=== PATIENT | male | born 1940 | race Caucasian/White ===

== ENCOUNTER 2019-05-30 12:46 | Inpatient (IN) ==
[2019-05-30] MEDS ORDERED: *HR* OxyCODONE Immed Rel 5 MG TABLET PO ONE (13:16)
--- NOTE | 2019-05-30 13:21 | Emergency Department Note ---
Disposition Clinical Impression: Closed right femoral fracture Qualifiers: Encounter type: initial encounter Femur location: unspecified portion of femur Fracture morphology: unspecified fracture morphology Qualified Code(s): S72.91XA - Unspecified fracture of right femur, initial encounter for closed fracture Disposition: Admitted As Inpatient Condition: Good Referrals: Geneva Hua CNP [Primary Care Provider] - Forms: ED Satisfaction Letter Time of Disposition: 14:59 Extremity Problem HPI - General Chief complaint: ED Extremity Problem,Nontraumatic Stated complaint: R hip pain Time Seen by Provider: 05/30/19 12:52 Source: patient, family (), EMS Mode of arrival: EMS Limitations: no limitations Nursing Notes Reviewed: Yes Vital Signs Reviewed: Yes - History of Present Illness HPI Narrative: 79-year-old male presents emergency department via EMS for right hip pain. Patient is status post ORIF 10/17/2018. Reports approximately 4 days of worsening pain in the right hip. He has been doing therapy twice a day most recent . They had to take it easy as he has some soreness in the right leg and Thursday he had difficulty with ambulation. Reportedly he has been laying in bed since then due to the pain. No recent fall or injury. He has been taken acetaminophen with minimal relief for pain. His surgery was back in October approximately [address] Whitney. Denies any numbness or tingling. De nies any other complaints. Denies any fevers nausea or vomiting. Pain Scale: 10 - Related Data Home Medications Medication Instructions Recorded Confirmed Glimepiride [Amaryl] 4 mg PO DAILY 10/17/18 05/30/19 Loratadine [Claritin] 10 mg PO DAILY 10/17/18 05/30/19 Potassium Chloride [Klor-Con 10] 10 meq PO DAILY 10/17/18 05/30/19 metFORMIN [Glucophage] 1,000 mg PO BIDWM 10/17/18 05/30/19 Aspirin [Lo-Dose Aspirin EC] 81 mg PO DAILY 10/18/18 05/30/19 Atorvastatin [Lipitor] 40 mg PO QMWF 10/18/18 05/30/19 Nitroglycerin [Nitrostat] 0.4 mg SL Q5M PRN MDD [id number] CALL 10/18/18 05/30/19 911 Vit A/Vit C/Vit E/Zinc/Copper 1 cap PO DAILY 10/18/18 05/30/19 [Icaps Areds Softgel] Lisinopril/Hydrochlorothiazide 20 mg OP DAILY 05/30/19 05/30/19 [Lisinopril-Hctz 20-25 mg Tab] Allergies Allergy/AdvReac Type Severity Reaction Status Date / Time Penicillins AdvReac passed out Verified 10/18/18 11:54 All systems ED: reviewed and negative except as stated. Review of Systems: As Per HPI Past Medical History - Past Medical History Attestation: Yes The following information was validated with the patient. Source: patient Medical history: Reports: diabetes, hyperlipidemia, hypertension Psychiatric history: Reports: no psych history - Social History Smoking Status: Former smoker Smokeless Tobacco Status: No Alcohol use: Reports: none Drug use: Reports: none Physical Exam - General Limitations: no limitations General appearance: alert, in no apparent distress - Chest Chest inspection: Present: normal inspection, symmetric chest wall rise - Respiratory Respiratory exam: Present: normal lung sounds bilaterally. Absent: respiratory distress, wheezes - Cardiovascular Cardiovascular exam: Present: regular rate, normal rhythm, normal heart sounds - Expanded Cardiovascular Exam Peripheral pulses: 2+: dorsalis pedis (R), dorsalis pedis (L) - Abdominal Exam Abdominal exam: Present: soft, Non-Tender, normal bowel sounds. Absent: tenderness, distention, guarding, rebound, rigidity - Expanded Lower Extremity Exam Hip/Pelvis exam: Present: normal inspection, tenderness, pelvis stable. Absent: internal rotation, shortening Upper leg exam: Present: normal inspection, tenderness (Mid right thigh), other (Surgical scar appears well-heeled, no fluctuance or surrounding erythema). Absent: deformity Knee exam: Present: normal inspection, full ROM. Absent: tenderness Lower leg exam: Present: normal inspection, full ROM. Absent: tenderness Ankle exam: Present: normal inspection, full ROM. Absent: tenderness Foot/toe exam: Present: normal inspection, full ROM. Absent: tenderness Neurovascular/Tendon exam: Present: normal capillary refill. Absent: pulse deficit, motor deficit, sensory deficit, tendon deficit - Neurological Exam Neurological exam: Present: alert, oriented X3 - Psychiatric Psychiatric exam: Present: normal affect, normal mood - Skin Skin exam: Present: warm, dry, intact, normal color. Absent: rash, cyanosis, diaphoresis Course Course Narrative: Patient presents for atraumatic right hip pain. He is status post surgical fixation from earlier this year. Neurovascular intact. Concern for post hardware fracture. - Reevaluation(s) Reevaluation #1: X-ray reveals acute fracture. Will obtain pre-op labs in EKG. Patient will be likely admitted to medicine service with orthopedic consultation. Time: 14:58 - Consultations Consultation #1: Spoke to the orthopedic surgeon immigration lawyer Dr. HAYNES, agrees with plan and management. Will [facility] medicine service. Dr. HAYNES will contact his orthopedic surgeon Dr. Whitney. Preop labs performed in pending. EKG shows bundle branch block. Time: 15:11 Consultation #2: Spoke with on-call hospitalist Dr. Treviño, ok to admit for femoral fracture. No further orders at this time Vital Signs Temperature 98.2 F 05/30/19 12:51 Pulse Rate 98 05/30/19 12:51 Respiratory Rate 18 05/30/19 12:51 Blood Pressure 158/98 05/30/19 12:51 O2 Sat by Pulse Oximetry 99 05/30/19 12:51 Temperature 98.2 F 05/30/19 12:51 Pulse Rate 80 05/30/19 15:56 Respiratory Rate 18 05/30/19 15:56 Blood Pressure 174/88 05/30/19 15:56 O2 Sat by Pulse Oximetry 98 05/30/19 15:56 Oxygen Delivery Oxygen Delivery Room Air Extremity Problem, Nontraumati - MDM Narrative Medical decision making narrative: Patient was discussed with my attending physician who agrees with ED management and final disposition. They independently evaluated the patient. Please refer to their attestation to this encounter for additional information. This note was generated by [employer] voice recognition software and as a result grammatical or spelling errors may occur using this program. - Medical Records Medical records reviewed: Yes I reviewed the patient's medical records. - Lab Data Lab results reviewed: Yes I reviewed the patient's lab results. Result diagrams: 05/30/19 14:24 05/30/19 14:24 Lab Results 05/30/19 05/30/19 05/30/19 Range/Units 14:24 14:24 15:23 WBC 11.0 (4.3-11.1) K/mcL RBC 4.26 (4.19-5.50) M/mcL Hgb 13.0 (12.9-16.9) g/dL Hct 39.4 (37.5-50.1) % MCV 92.5 (83.0-100.0) fL MCH 30.5 (28.0-33.3) pg MCHC 33.0 (31.6-35.5) g/dL RDW 13.7 (11.5-14.5) % Plt Count 347 (140-400) K/mcL MPV 11.3 (9.4-12.4) fL Immature Gran % 0.2 (0-4) % Seg Neutrophils % 57.8 % Lymphocytes % 33.7 % Monocytes % 6.9 % Eosinophils % 1.0 % Basophils % 0.4 % Neutrophils # 6.3 (1.6-8.9) K/mcL Lymphocytes # 3.7 (0.6-4.6) K/mcL Monocytes # 0.8 (0.0-1.3) K/mcL Eosinophils # 0.1 (0.0-0.6) K/mcL Basophils # 0.0 (0.0-0.2) K/mcL Sodium 139 (136-145) mEq/L Potassium 3.7 (3.5-5.1) mEq/L Chloride 100 (98-107) mEq/L Carbon Dioxide 30 H (23-29) mEq/L BUN 31 H (8-23) mg/dL Creatinine 1.57 H (0.70-1.30) mg/dL Est GFR ( Amer) 52 L (> 60) Est GFR (Non-Af Amer) 43 L (> 60) BUN/Creatinine Ratio 20 (6-26) Glucose 335 H (70-105) mg/dL Calculated Osmolality 308 H (280-300) Calcium 9.4 (8.6-10.3) mg/dL Troponin I < 0.03 (< 0.04) ng/mL - Radiology Data Radiology results reviewed: Yes I reviewed the patient's radiology results. Femur X-Ray 05/30/19 13:41 IMPRESSION: 1. Acute traumatic fracture of the proximal femoral intramedullary amarilys at the level of the screw within adjacent oblique fracture of the proximal femur. D/ / Tex Calderón MD / Tex Calderón MD Interpreting Provider: Tex Calderón MD Pelvis X-Ray 05/30/19 13:42 IMPRESSION: Fracture of the intramedullary amarilys extending through the femur at the level of the cortical screw with oblique comminuted fracture through the proximal diaphysis of the femur. D/ / 05/30/2019 13:46:05 Alex Morillo MD / Amelia Jorgensen Interpreting Provider: Aelx Morillo MD - EKG Data EKG attestation: Yes I reviewed and interpreted this EKG. EKG results narrative: EKG performed 1452 reveals a sinus rhythm with right bundle branch block URS is wide at [address] elevation or Sgarbossa criteria Attestation Statement - Attestation Attestation: I, Michael Angulo DO, examined this patient [id number] and my medical decision-making was reviewed with Mario Alberto Hutson DO , Resident Physician. I agree with the documented findings, disposition and treatment plan as described except to the extent set forth below. I personally supervised and was present for the rodriguez/critical portions of the procedures completed by the resident documented below. Please see my progress notes for details.
--- NOTE | 2019-05-30 14:16 | Emergency Department Note ---
Disposition Clinical Impression: Closed right femoral fracture Disposition: Admitted As Inpatient Condition: Good Referrals: Geneva Hua, LABORER [employer]OLITION [Advanced Practice Nurse] - Forms: ED Satisfaction Letter Time of Disposition: 15:50 General Adult HPI - General Chief complaint: ED Extremity Problem,Nontraumatic Stated complaint: R hip pain Time Seen by Provider: 05/30/19 12:52 Source: patient, family (), EMS Mode of arrival: EMS Limitations: no limitations - History of Present Illness Pain Scale: 10 - Related Data Home Medications Medication Instructions Recorded Confirmed Glimepiride [Amaryl] 4 mg PO DAILY 10/17/18 10/18/18 Loratadine [Claritin] 10 mg PO DAILY 10/17/18 10/18/18 Pioglitazone HCl [Actos] 15 mg PO DAILY 10/17/18 10/18/18 Potassium Chloride [Klor-Con 10] 10 meq PO DAILY 10/17/18 10/18/18 metFORMIN [Glucophage] 1,000 mg PO BIDWM 10/17/18 10/18/18 Aspirin [Lo-Dose Aspirin EC] 81 mg PO DAILY 10/18/18 10/18/18 Atorvastatin [Lipitor] 40 mg PO QMWF 10/18/18 10/18/18 Finasteride [Proscar] 5 mg PO DAILY 10/18/18 10/18/18 Nitroglycerin [Nitrostat] 0.4 mg SL Q5M PRN MDD [id number] CALL 10/18/18 10/18/18 911 Vit A/Vit C/Vit E/Zinc/Copper 1 cap PO DAILY 10/18/18 10/18/18 [Icaps Areds Softgel] Previous Rx's Medication Instructions Recorded Carvedilol [Coreg] 6.25 mg PO BIDWM #60 tablet 10/23/18 Ferrous Sulfate 325 mg PO BIDWM #60 tablet 10/23/18 Allergies Allergy/AdvReac Type Severity Reaction Status Date / Time Penicillins AdvReac passed out Verified 10/18/18 11:54 Past Medical History - Past Medical History Medical history: Reports: diabetes, hyperlipidemia, hypertension Psychiatric history: Reports: no psych history - Social History Smoking Status: Former smoker Smokeless Tobacco Status: No Alcohol use: Reports: none Drug use: Reports: none Physical Exam - General Limitations: no limitations General appearance: alert, in no apparent distress Course Vital Signs Temperature 98.2 F 09/23/19 12:51 Pulse Rate 98 05/30/19 12:51 Respiratory Rate 18 05/30/19 12:51 Blood Pressure 158/98 05/30/19 12:51 O2 Sat by Pulse Oximetry 99 05/30/19 12:51 Temperature 98.2 F 05/30/19 12:51 Pulse Rate 98 05/30/19 12:51 Respiratory Rate 18 05/30/19 12:51 Blood Pressure 158/98 05/30/19 12:51 O2 Sat by Pulse Oximetry 99 05/30/19 12:51 Oxygen Delivery Oxygen Delivery Room Air Medical Decision Making - Lab Data Result diagrams: 05/30/19 14:24 05/30/19 14:24 Lab Results 05/30/19 05/30/19 Range/Units 14:24 14:24 WBC 11.0 (4.3-11.1) K/mcL RBC 4.26 (4.19-5.50) M/mcL Hgb 13.0 (12.9-16.9) g/dL Hct 39.4 (37.5-50.1) % MCV 92.5 (83.0-100.0) fL MCH 30.5 (28.0-33.3) pg MCHC 33.0 (31.6-35.5) g/dL RDW 13.7 (11.5-14.5) % Plt Count 347 (140-400) K/mcL MPV 11.3 (9.4-12.4) fL Immature Gran % 0.2 (0-4) % Seg Neutrophils % 57.8 % Lymphocytes % 33.7 % Monocytes % 6.9 % Eosinophils % 1.0 % Basophils % 0.4 % Neutrophils # 6.3 (1.6-8.9) K/mcL Lymphocytes # 3.7 (0.6-4.6) K/mcL Monocytes # 0.8 (0.0-1.3) K/mcL Eosinophils # 0.1 (0.0-0.6) K/mcL Basophils # 0.0 (0.0-0.2) K/mcL Sodium 139 (136-145) mEq/L Potassium 3.7 (3.5-5.1) mEq/L Chloride 100 (98-107) mEq/L Carbon Dioxide 30 H (23-29) mEq/L BUN 31 H (8-23) mg/dL Creatinine 1.57 H (0.70-1.30) mg/dL Est GFR ( Amer) 52 L (> 60) Est GFR (Non-Af Amer) 43 L (> 60) BUN/Creatinine Ratio 20 (6-26) Glucose 335 H (70-105) mg/dL Calculated Osmolality 308 H (280-300) Calcium 9.4 (8.6-10.3) mg/dL Attestation Statement - Attestation Attestation: I, Michael Angulo DO, examined this patient [id number] and my medical decision-making was reviewed with Mario Alberto Hutson DO , Resident Physician. I agree with the documented findings, disposition and treatment plan as described except to the extent set forth below. I personally supervised and was present for the rodriguez/critical portions of the procedures completed by the resident documented below. Please see my progress notes for details. 79-year-old male presents emergency room with a traumatic right thigh pain. Patient had a an intramedullary nail placed after hip fracture or thigh fracture several months ago in October. Patient been doing well at home after going to rehabilitation. He currently denies any chest pain shortness breath fevers ch ills nausea vomiting or diarrhea. Denies any headache or vision change. He has not fallen or injured himself. Denies any travel outside the country or traumatic injuries to the thigh. Vital signs reviewed and are stable. Patient is resting comfortably in the bed. Head is atraumatic. Pupils are equal and reactive. Extracted muscles are intact. Lungs are clear heart is regular abdomen is soft. Pelvis appears to be stable. No pain noted in the inguinal canals bilaterally and femoral pulses are intact. Mild tenderness presentation of the skin is noted over the surgical incision site with no redness warmth or abnormality to the right thigh. Patient has no specific numbness tingling or paresthesias distally to this. Patient is unable to lift the leg up or bear weight this time secondary to pain. When I straight leg raise the patient's lower extremity does have discomfort in the mid shaft of the thigh. Imaging of the pelvis and thigh were ordered at this time. Patient has no other acute issues that justify other further workup and imaging at this time. Disposition to be determined once full workup and evaluation have been established. See detailed documentation the physical exam, medical intervention, medical decision-making and disposition in the resident physician's note. No critical care provider the patient's treatment course at this time. 1400 Patient is found to have a midshaft fracture through the intramedullary nail with discontinuity of the nail at this time. Patient will be discussed with the on-call orthopedic physician for admission and surgical intervention. Patient family are informed. Screening labs were ordered for preoperative evaluation. Patient is otherwise stable. 4844 Patient was discussed with the hospitalist Dr. Treviño. No other recommendations or concerns are noted this time. Patient will be admitted for symptomatically control pain and surgical consultation with orthopedics. Patient will be monitored here in emergency department until admission processes established.
[2019-05-30 14:41] LABS: Basophils % 0.4 %; Eosinophils # 0.1 K/mcL (0.0-0.6); Hematocrit 39.4 % (37.5-50.1); Immature Granulocytes % 0.2 % (0-4); Lymphocytes # 3.7 K/mcL (0.6-4.6); Lymphocytes % 33.7 %; Mean Corpuscular Hemoglobin 30.5 pg (28.0-33.3); Mean Corpuscular Volume 92.5 fL (83.0-100.0); Mean Platelet Volume 11.3 fL (9.4-12.4); Monocytes # 0.8 K/mcL (0.0-1.3); Monocytes % 6.9 %; Neutrophils # 6.3 K/mcL (1.6-8.9); Platelet Count 347 K/mcL (140-400); Red Blood Count 4.26 M/mcL (4.19-5.50); Red Cell Distribution Width 13.7 % (11.5-14.5); Segmented Neutrophils % 57.8 %
[2019-05-30 14:58] LABS: Calcium 9.4 mg/dL (8.6-10.3); Potassium 3.7 mEq/L (3.5-5.1)
[2019-05-30] MEDS ORDERED: Morphine Sulfate 2 MG/ML SYRINGE IVP ONE (15:31)
--- NOTE | 2019-05-30 16:21 | Orthopedic Consult Note ---
Date of Encounter: 05/30/19 Time of Encounter: 16:30 Assessment and Plan (1) Hardware failure Current Visit: Yes Status: Acute (2) Closed right femoral fracture Current Visit: Yes Status: Acute Qualifiers: Encounter type: initial encounter Femur location: unspecified portion of femur Fracture morphology: unspecified fracture morphology Qualified Code(s): S72.91XA - Unspecified fracture of right femur, initial encounter for closed fracture History of Present Illness Chief complaint: right hip fracture HPI: Mr. Wilkerson is a 79 year old male presenting to [facility] for difficulty ambulating and right hip pain. Ongoing and worsening over the past 5 days per report. Attempted to locate patient who per ED staff is en route through hospital to room. Unable to locate while in transit. XRays reviewed with Dr. Whitney. RIGHT HIP "Acute traumatic fracture of the proximal femoral intramedullary amarilys at the level of the screw within adjacent oblique fracture of the proximal femur." Patient will require surgical intervention in form of revision to long IM nail. This requires special equipment. Patient will need medical clearance prior to surgery, which will be planned for Thursday, 06/01. Pain control per primary team Nonweightbearing to RLE No hip motion Patient to be NPO midnight 06/01 Avoid heavy anticoagulation while inpatient secondary to large fracture. Monitor h/h closely. Will see patient at bedside in the morning once reaches room. Thank you for this consultation. Past Med Surg Social Fam HX - Past Medical History Medical history: diabetes, hyperlipidemia, hypertension Additional medical history: history of rib fx,overactive bladder Psychiatric history: no psych history - Social History Smoking Status: Former smoker Smokeless Tobacco Status: No Alcohol use: none Drug use: none - Family History Father History Unknown: Yes Mother History Unknown: Yes Medications and Allergies Glimepiride [Amaryl] 4 mg PO DAILY 10/17/18 [History] Loratadine [Claritin] 10 mg PO DAILY 10/17/18 [History] Potassium Chloride [Klor-Con 10] 10 meq PO DAILY 10/17/18 [History] metFORMIN [Glucophage] 1,000 mg PO BIDWM 10/17/18 [History] Aspirin [Lo-Dose Aspirin EC] 81 mg PO DAILY 10/18/18 [History] Atorvastatin [Lipitor] 40 mg PO MOWEFR 10/18/18 [History] Nitroglycerin [Nitrostat] 0.4 mg SL Q5MIN PRN MDD [id number] CALL 911 10/18/18 [History] Vit A/Vit C/Vit E/Zinc/Copper [Icaps Areds Softgel] 1 cap PO DAILY 10/18/18 [History] Lisinopril/Hydrochlorothiazide [Lisinopril-Hctz 20-25 mg Tab] 20 mg PO DAILY 05/30/19 [History] Allergy/AdvReac Type Severity Reaction Status Date / Time Penicillins AdvReac passed out Verified 10/18/18 11:54 All Systems Reviewed: The remainder of the systems were reviewed and are negative Physical Exam - Constitutional Vitals: Temp Pulse Resp BP Pulse Ox 98.2 F 80 18 174/88 98 05/30/19 12:51 05/30/19 15:56 05/30/19 15:56 05/30/19 15:56 05/30/19 15:56 Results - Labs Result Diagrams: 05/30/19 14:24 05/30/19 14:24 Labs: Abnormal lab results Carbon Dioxide 30 mEq/L (23-29) H 05/30/19 14:24 BUN 31 mg/dL (8-23) H 05/30/19 14:24 Creatinine 1.57 mg/dL (0.70-1.30) H 05/30/19 14:24 Est GFR ( Amer) 52 (> 60) L 05/30/19 14:24 Est GFR (Non-Af Amer) 43 (> 60) L 05/30/19 14:24 Glucose 335 mg/dL (70-105) H 05/30/19 14:24 Calculated Osmolality 308 (280-300) H 05/30/19 14:24 H & H 05/30/19 Range/Units 14:24 Hgb 13.0 (12.9-16.9) g/dL Hct 39.4 (37.5-50.1) % All other labs normal. Consult Discharge Plan - Plan Referrals: Geneva Hua, ROD FILLER [Primary Care Provider] -
[2019-05-30] MEDS ORDERED: Naloxone 0.4 MG/ML INJ IVP PRN (16:32)
[2019-05-30] MEDS ORDERED: Nitroglycerin 0.4 MG TAB.SUBL SL PRN (16:38)
[2019-05-30] MEDS ORDERED: *HR* Dextrose 50 % in Water (Syg) 50 ML SYRINGE IVP PRN (16:40)
[2019-05-30] MEDS ORDERED: Dextrose Gel 15 GM/37.5 ML TUBE PO PRN ×2 (16:40)
[2019-05-30] MEDS ORDERED: D5% in Water 1,000 ML IVC PRN (16:40)
--- NOTE | 2019-05-30 16:58 | Internal Med History&Physical ---
Date of Encounter: 05/30/19 Time of Encounter: 16:53 Internal Medicine - H&P: HPI Chief complaint: Right hip pain. Admitted From: Home Plans for Post Hospital Care: Transfer [facility] History of present illness: Mr. Wilkerson is a 79 year old male with past medical history of HTN, HLD, BPPV and DM 2. He presented with right hip pain limiting ambulation. Patient had ORIF for right hip fracture on 10/17/2018. His postoperative period was uncomplicated and he was discharged to nursing facility for 6 weeks and has been going through physical therapy twice a day since then. Patient however started experiencing some soreness in his right hip about 5 days ago which limited his ability to participate in physical therapy and now has him bedbound. The pain is 5/10 the moment, limited to the right hip and exacerbated by movement. He denies recent fall or trauma to the hip. Past Med Surg Social Fam HX - Past Medical History Medical history: diabetes, hyperlipidemia, hypertension Additional medical history: history of rib fx,overactive bladder Psychiatric history: no psych history - Past Surgical History Surgical History: orthopedic, other (ORIF on right hip in October) - Social History Smoking Status: Former smoker Smokeless Tobacco Status: No Alcohol use: none Drug use: none - Additional Family History Additional family history: Reviewed and noncontributory Internal Medicine - H&P: Meds Glimepiride [Amaryl] 4 mg PO DAILY 10/17/18 [History] Loratadine [Claritin] 10 mg PO DAILY 10/17/18 [History] Potassium Chloride [Klor-Con 10] 10 meq PO DAILY 10/17/18 [History] metFORMIN [Glucophage] 1,000 mg PO BIDWM 10/17/18 [History] Aspirin [Lo-Dose Aspirin EC] 81 mg PO DAILY 10/18/18 [History] Atorvastatin [Lipitor] 40 mg PO MOWEFR 10/18/18 [History] Nitroglycerin [Nitrostat] 0.4 mg SL Q5MIN PRN MDD [id number] CALL 911 10/18/18 [History] Vit A/Vit C/Vit E/Zinc/Copper [Icaps Areds Softgel] 1 cap PO DAILY 10/18/18 [History] Lisinopril/Hydrochlorothiazide [Lisinopril-Hctz 20-25 mg Tab] 20 mg PO DAILY 05/30/19 [History] Allergy/AdvReac Type Severity Reaction Status Date / Time Penicillins AdvReac passed out Verified 10/18/18 11:54 All Systems PM: A 10-system review of systems was performed and is negative for pertinent findings except as documented above in the HPI. Review of systems: GENERAL: No fever and chills HEENT: No rhinorrhea, No sore throat, No ear pain or discharge, No dysphagia or odynophagia PULMONARY: No cough, No chest pain, No Sputum production, No dyspnea on exertion CARDIOVASCULAR: No chest pain, no palpitations, No shortness of breath, No PND, No orthopnea GASTROINTESTINAL: No abdominal pain, No nausea, No vomiting, No constipation, No DIARRHEA, No hematemesis, No hematochezia MUSKULOSKELETAL: As in history of present illness INTEGUMENTARY: No new skin lesions NERVOUS SYSTEM: No Dizziness, No weakness, No slurred speech, No diplopia or blurred/ loss vision, No numbness, No tinglng sensation. - Constitutional Vitals: Temp Pulse Resp BP Pulse Ox 36.8 C 80 18 174/88 98 05/30/19 12:51 05/30/19 15:56 05/30/19 15:56 05/30/19 15:56 05/30/19 15:56 Exam: GENERAL: Not in distress. Alert and Oriented HEENT: EOMI, PERRLA MOUTH: Moist oral mucosa NECK:No JVD, No lymph nodes. CHEST AND LUNGS: Normal breath sounds, no wheezes or crackles HEART: S1 and S2 normal, no murmurs ABDOMEN: Soft, nontender, no organomegaly SKIN: Normal color, no rahses, no lesions EXTREMITIES: Well-healed longitudinal surgical scar over right hip, moderate swelling and tenderness of the lateral right proximal thigh. NEUROLOGICAL: Normal cognition, normal motor and sensory exam. Internal Med - H&P Results - Labs CBC & Chem 7: 05/30/19 14:24 05/30/19 14:24 Labs: Short CBC 05/30/19 Range/Units 14:24 WBC 11.0 (4.3-11.1) K/mcL Hgb 13.0 (12.9-16.9) g/dL Hct 39.4 (37.5-50.1) % Plt Count 347 (140-400) K/mcL Neutrophils # 6.3 (1.6-8.9) K/mcL BMP 05/30/19 14:24 Sodium 139 Potassium 3.7 Chloride 100 Carbon Dioxide 30 H BUN 31 H Creatinine 1.57 H Glucose 335 H Calcium 9.4 Cardiac Enzymes 05/30/19 Range/Units 15:23 Troponin I < 0.03 (< 0.04) ng/mL - Impressions ITS Impressions Femur X-Ray 05/30/19 13:41 IMPRESSION: 1. Acute traumatic fracture of the proximal femoral intramedullary amarilys at the level of the screw within adjacent oblique fracture of the proximal femur. D/ / Tex Calderón MD / Tex Calderón MD Interpreting Provider: Txe Calderón MD Pelvis X-Ray 05/30/19 13:42 IMPRESSION: Fracture of the intramedullary amarilys extending through the femur at the level of the cortical screw with oblique comminuted fracture through the proximal diaphysis of the femur. D/ / 05/30/2019 13:46:05 Alex Morillo MD / Amelia Jorgensen Interpreting Provider: Alex Morillo MD - Assessment and Plan (1) Closed right femoral fracture Current Visit: Yes Status: Acute Assessment and plan: Patient had ORIF 10/17/2018 Has been going through physical therapy since Soreness in right hip over the last 5 days No history of fall or trauma X-ray which I reviewed shows acute fracture of the proximal femoral intram edullary extending through the femur. Orthopedic consult Nothing by mouth at midnight. Adequate analgesia Qualifiers: Encounter type: initial encounter Femur location: unspecified portion of femur Fracture morphology: unspecified fracture morphology Qualified Code(s): S72.91XA - Unspecified fracture of right femur, initial encounter for closed fracture (2) Chronic kidney disease, stage III (moderate) Current Visit: No Status: Chronic Assessment and plan: We will monitor creatinine Avoid nephrotoxins (3) Diabetes mellitus, type 2 Current Visit: No Status: Chronic Assessment and plan: Accu-Cheks Sliding scale Qualifiers: Diabetes mellitus mcfp insulin use: without mcfp use Diabetes mellitus complication status: with hyperglycemia Qualified Code(s): E11.65 - Type 2 diabetes mellitus with hyperglycemia (4) Essential hypertension Current Visit: No Status: Chronic Assessment and plan: BP not controlled. Currently 170/88 Resume home meds Hydralazine when necessary (5) Hyperlipidemia Current Visit: Yes Status: Chronic Assessment and plan: Continue statins Qualifiers: Hyperlipidemia type: mixed hyperlipidemia Qualified Code(s): E78.2 - Mixed hyperlipidemia (6) DVT prophylaxis Current Visit: Yes Status: Acute Assessment and plan: PCD's - Time Spent With Patient Total time spent is greater than 50% in coordination of care (as documented) at patient's floor/unit and/or counseling patient:
[2019-05-30] MEDS: 0.9 % Sodium Chloride 1,000 ML IVC SCH (21:19)
[2019-05-31 04:18] LABS: Basophils % 0.4 %; Eosinophils # 0.1 K/mcL (0.0-0.6); Eosinophils % 1.5 %; Hematocrit 38.3 % (37.5-50.1); Hemoglobin 12.4 g/dL (12.9-16.9); Immature Granulocytes % 0.3 % (0-4); Lymphocytes # 3.9 K/mcL (0.6-4.6); Lymphocytes % 41.3 %; Mean Corpuscular HGB Conc 32.4 g/dL (31.6-35.5); Mean Corpuscular Hemoglobin 29.9 pg (28.0-33.3); Mean Corpuscular Volume 92.3 fL (83.0-100.0); Monocytes # 0.7 K/mcL (0.0-1.3); Monocytes % 7.7 %; Neutrophils # 4.6 K/mcL (1.6-8.9); Platelet Count 313 K/mcL (140-400); Red Blood Count 4.15 M/mcL (4.19-5.50); Red Cell Distribution Width 13.5 % (11.5-14.5); Segmented Neutrophils % 48.8 %; White Blood Count 9.3 K/mcL (4.3-11.1)
[2019-05-31 04:37] LABS: BUN/Creatinine Ratio 19 (6-26); Blood Urea Nitrogen 25 mg/dL (8-23); Calcium 8.9 mg/dL (8.6-10.3); Carbon Dioxide 27 mEq/L (23-29); Chloride 105 mEq/L (98-107); Glucose 211 mg/dL (70-105); Osmolality,Calculated 301 (280-300); Potassium 3.3 mEq/L (3.5-5.1); Sodium 140 mEq/L (136-145); eGFR For African Americans > 60 (> 60); eGFR For Non-African Americans 51 (> 60)
[2019-05-31] MEDS: 0.9 % Sodium Chloride 1,000 ML IVC SCH (07:46)
[2019-05-31] MEDS: Insulin LISPRO 300 UNITS/3 ML VIAL SQ SCH ×3 (08:30→17:06)
[2019-05-31] MEDS ORDERED: Loratadine 10 MG TABLET PO SCH (09:00)
--- NOTE | 2019-05-31 09:57 | Electrocardiograph Report ---
[facility] [employer] Test Date: 2019-05-30 Pat Name: Ulysses Wilkerson Department: EXAM4 Room: 3A63 Gender: M Placement Manager: : 1940 Requested By: Mario Alberto Hutson Order Number: [id number] Reading MD: Pablo Raymundo Measurements Intervals [place] Rate: 88 P: 64 IL: 227 QRS: -74 QRSD: 149 T: 84 QT: 402 QTc: 487 Interpretive Statements Sinus rhythm Prolonged IL interval Right bundle branch block LVH with IVCD and secondary repol abnrm Inferior infarct, acute Lateral leads are also involved Electronically Signed On 05-31-2019 9:55:47 EDT by Pablo Raymundo
--- NOTE | 2019-05-31 12:14 | Internal Med Progress Note ---
Hospitalist Progress Note - Encounter Date of Encounter: 05/31/19 Time of Encounter: 12:14 - Subjective Interval History: No acute events overnight. Patient reports pain in right hip when he moves but states that it has been well controlled with medications. Denies chest pain, palpitations and SOB. - Exam Vitals: Temp Pulse Resp BP Pulse Ox 36.8 C 91 16 168/88 92 05/31/19 10:54 05/31/19 10:54 05/31/19 10:54 05/31/19 10:54 05/31/19 10:54 Exam: GENERAL: Not in distress. Alert and Oriented HEENT: EOMI, PERRLA MOUTH: Moist oral mucosa NECK:No JVD, No lymph nodes. CHEST AND LUNGS: Normal breath sounds, no wheezes or crackles HEART: S1 and S2 normal, no murmurs ABDOMEN: Soft, nontender, no organomegaly SKIN: Normal color, no rahses, no lesions EXTREMITIES: Well-healed longitudinal surgical scar over right hip, moderate swelling and tenderness of the lateral right proximal thigh. NEUROLOGICAL: Normal cognition, normal motor and sensory exam. - Assessment and Plan (1) Closed right femoral fracture Current Visit: Yes Status: Acute Assessment and Plan: Patient had ORIF 10/17/2018 Has been going through physical therapy since Soreness in right hip over the last 5 days No history of fall or trauma X-ray shows acute fracture of the proximal femoral intramedullary extending through the femur. Seen by ortho. Plan is to have surgery o 06/01/19 Will consult cardio for cadiovascular periop eval. (2) Chronic kidney disease, stage III (moderate) Current Visit: No Status: Chronic Assessment and Plan: We will monitor creatinine Avoid nephrotoxins (3) Diabetes mellitus, type 2 Current Visit: No Status: Chronic Assessment and Plan: Accu-Cheks Sliding scale Hold home metformin and Amaryl (4) Essential hypertension Current Visit: No Status: Chronic Assessment and Plan: BP not controlled. Currently 168/88 On hime meds. Hydralazine when necessary (5) Hyperlipidemia Current Visit: Yes Status: Chronic Assessment and Plan: Continue statins (6) DVT prophylaxis Current Visit: Yes Status: Acute Assessment and Plan: PCD's - Time Spent with Patient Total time spent is greater than 50% in coordination of care (as documented) at patient's floor/unit and/or counseling patient: Internal Medicine: Result - Labs CBC & Chem 7: 05/31/19 03:59 05/31/19 03:59 Labs: Short CBC 05/30/19 05/31/19 Range/Units 14:24 03:59 WBC 11.0 9.3 (4.3-11.1) K/mcL Hgb 13.0 12.4 L (12.9-16.9) g/dL Hct 39.4 38.3 (37.5-50.1) % Plt Count 347 313 (140-400) K/mcL Neutrophils # 6.3 4.6 (1.6-8.9) K/mcL BMP 05/30/19 05/31/19 14:24 03:59 Sodium 139 140 Potassium 3.7 3.3 L Chloride 100 105 Carbon Dioxide 30 H 27 BUN 31 H 25 H Creatinine 1.57 H 1.35 H Glucose 335 H 211 H Calcium 9.4 8.9 Cardiac Enzymes 05/30/19 Range/Units 15:23 Troponin I < 0.03 (< 0.04) ng/mL - Impressions Impressions Femur X-Ray 05/30/19 13:41 IMPRESSION: 1. Acute traumatic fracture of the proximal femoral intramedullary amarilys at the level of the screw within adjacent oblique fracture of the proximal femur. D/ / Tex Calderón MD / Tex Calderón MD Interpreting Provider: Tex Calderón MD Pelvis X-Ray 05/30/19 13:42 IMPRESSION: Fracture of the intramedullary amarilys extending through the femur at the level of the cortical screw with oblique comminuted fracture through the proximal diaphysis of the femur. 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
--- NOTE | 2019-05-31 13:45 | Cardiology Consult Note ---
<Lisa Muhammad - Last Filed: 05/31/19 13:42> Date of Encounter: 05/31/19 Time of Encounter: 13:43 Assessment and Plan (1) Preop cardiovascular exam Current Visit: No Status: Acute Per cardiology: -ECG with no acute ischemic changes noted. -Poor functional capacity. -Of note, had markedly abnormal stress 2016 which showed fixed defect inferior wall, basal and mid anterolateral wall ischemia with moderate reversibility, evidence of TID. Patient was seen by outpatient cardiology and recommended for [facility], however patient declined. Patient continues to decline invasive cardiology evaluation. -TTE 10/2018 with LVEF 45-50%, moderate diastolic dysfunction, The apical inferior, mid inferior, basal inferior, mid anterior lateral, basal anterior lateral, mid inferior lateral and basal inferior lateral kirby were hypokinetic. -Of note, last surgery 10/2018 under general anesthesia. -With markedly abnormal stress test 2015, poor functional capacity, and abnormal TTE 10/2018, patient would be at high risk for cardiovascular complications in the marcie-operative time frame. Risks were discussed with patient who states understanding. Discussion w patient/family: The assessment and plan as outlined above was discussed with the patient who expressed understanding and agreement. All questions were answered. Thank you for involving us in the care of your patient. Please call with any questions. Discussed and reviewed with . History of Present Illness Consult date: 05/31/19 Requesting physician: Aaliyah Ocampo Consult reason: preop Chief complaint: hip pain History of present illness: Mr. Wilkerson is a 79 year old male with a relevant past medical history of uncontrolled DM, HTN, HLD, parkinson's disease, CKD III, BPH, OA who presented to [facility] with complaints of hip/leg pain. Patient was noted to have fracture of femur amarilys. Cardiology has been consulted for preop risk stratification. Patient denies chest pain, worsening shortness of breath. Reports poor functional capacity, unable to achieve 4 METs. Past Med Surg Social Fam HX - Past Medical History Attestation: Yes The following information was validated with the patient. Source: patient, old records reviewed Medical history: diabetes, hyperlipidemia, hypertension Additional medical history: history of rib fx,overactive bladder Psychiatric history: no psych history - Past Surgical History Surgical History: orthopedic, other - Social History Smoking Status: Former smoker Smokeless Tobacco Status: No Alcohol use: none Drug use: none - Family History Father History Unknown: Yes Mother History Unknown: Yes Medications and Allergies Glimepiride [Amaryl] 4 mg PO DAILY 10/17/18 [History] Loratadine [Claritin] 10 mg PO DAILY 10/17/18 [History] Potassium Chloride [Klor-Con 10] 10 meq PO DAILY 10/17/18 [History] metFORMIN [Glucophage] 1,000 mg PO BIDWM 10/17/18 [History] Aspirin [Lo-Dose Aspirin EC] 81 mg PO DAILY 10/18/18 [History] Atorvastatin [Lipitor] 40 mg PO MOWEFR 10/18/18 [History] Nitroglycerin [Nitrostat] 0.4 mg SL Q5MIN PRN MDD [id number] CALL 911 10/18/18 [History] Vit A/Vit C/Vit E/Zinc/Copper [Icaps Areds Softgel] 1 cap PO DAILY 10/18/18 [History] Lisinopril/Hydrochlorothiazide [Lisinopril-Hctz 20-25 mg Tab] 20 mg PO DAILY 05/30/19 [History] Allergy/AdvReac Type Severity Reaction Status Date / Time Penicillins AdvReac passed out Verified 10/18/18 11:54 All Systems Review: The remainder of the systems were reviewed and are negative - Cardiovascular Cardiovascular: as per HPI Physical Examination Vital Signs, Last 4 Hours Temp Pulse Resp BP Pulse Ox 05/31/19 10:54 98.3 F 91 16 168/88 92 General: Conversant, No Apparent Distress HEENT: Atraumatic, Normocephaly, Mucus Membranes Moist Neck: No JVD, Normal carotid pulses Cardiac: Reg Rate and Rhythm, Normal S1 and S2, No Murmur Lungs: Normal Breath Sounds, No Wheeze, Rales, Rhonchi Neuro: Alert and responsive, No focal deficits noted Abdomen: Soft, Non-Tender Skin: No rashes noted on visualized skin Musculoskeletal: No Chest Wall Tenderness Extremities: No Clubbing, No Cyanosis, No Edema, Normal Pulses Results 05/31/19 03:59 05/31/19 03:59 Lab Results Impressions Femur X-Ray 05/30/19 13:41 IMPRESSION: 1. Acute traumatic fracture of the proximal femoral intramedullary amarilys at the level of the screw within adjacent oblique fracture of the proximal femur. D/ / Tex Calderón MD / Tex Calderón MD Interpreting Provider: Tex Calderón MD Pelvis X-Ray 05/30/19 13:42 IMPRESSION: Fracture of the intramedullary amarilys extending through the femur at the level of the cortical screw with oblique comminuted fracture through the proximal diaphysis of the femur. D/ / 05/30/2019 13:46:05 Alex Morillo MD / Amelia Jorgensen Interpreting Provider: Alex Morillo MD Active Medications Atorvastatin Calcium (Lipitor) 40 mg PO QMWF GEOFF Stop: 12/01/19 09:01 Dextrose/Water (Dextrose 50% (Syg)) 25 ml IVP AD PRN PRN Reason: Hypoglycemia Stop: 11/29/19 16:41 Glucagon (Glucagen) 1 mg IM ONCE PRN PRN Reason: Hypoglycemia Stop: 11/29/19 16:41 Glucose (Gluctose) 15 gm PO ONCE PRN PRN Reason: Hypoglycemia Stop: 11/29/19 16:41 Glucose (Gluctose) 30 gm PO ONCE PRN PRN Reason: Hypoglycemia Stop: 11/29/19 16:41 Hydralazine HCl (Hydralazine) 10 mg IVP Q6HR PRN PRN Reason: Hypertension Stop: 11/29/19 17:16 Last Admin: 05/31/19 11:59 Dose: 10 mg Documented by: Sodium Chloride (0.9 % Sodium Chloride) 1,000 mls @ 100 mls/hr IVC .Q10H GEOFF Stop: 11/29/19 16:16 Last Admin: 05/31/19 07:46 Dose: 100 mls/hr Documented by: Dextrose (Dextrose 5%) 1,000 mls @ 100 mls/hr IVC .Q10H PRN PRN Reason: HYPOGLYCEMIA Stop: 11/29/19 16:41 Insulin Detemir (Levemir) 5 unit SQ HS GEOFF Stop: 11/30/19 21:01 Insulin Human Lispro (Humalog) 0 units SQ TIDAC GEOFF; Protocol Stop: 11/30/19 07:31 Last Admin: 05/31/19 11:59 Dose: 6 units Documented by: Loratadine (Claritin) 10 mg PO DAILY GEOFF; Protocol Stop: 11/30/19 09:01 Last Admin: 05/31/19 08:31 Dose: 10 mg Documented by: Naloxone HCl (Narcan) 0.4 mg IVP Q2MPRN PRN PRN Reason: SEE COMMENTS Stop: 11/29/19 16:33 Nitroglycerin (Nitroglycerin) 0.4 mg SL Q5MPRN PRN PRN Reason: Chest Pain Stop: 11/29/19 16:39 Oxycodone HCl (Oxycodone Oral Conc) 5 mg SL Q6HR PRN; Protocol PRN Reason: Pain Stop: 11/30/19 01:45 Last Admin: 05/31/19 02:50 Dose: 5 mg Documented by: Potassium Chloride (Potassium Chloride) 10 meq PO DAILY GEOFF Stop: 11/30/19 09:01 Last Admin: 05/31/19 08:31 Dose: 10 meq Documented by: Laboratory Tests 05/30/19 05/31/19 05/31/19 15:23 03:59 03:59 Hgb 12.4 L Creatinine 1.35 H Troponin I < 0.03 - Imaging and Cardiology Chest Xray: report reviewed Stress Test: report reviewed Echo: report reviewed - EKG Interpretation EKG results cardiology: personally reviewed (ECG with SR, RBBB, LVH.) Consult Discharge Plan - Plan Referrals: Geneva Hua, CHEMICAL WORKER [Primary Care Provider] - <Porfirio Arechiga A - Last Filed: 05/31/19 21:45> Date of Encounter: 05/31/19 - Attending Attestation I have personally performed a face to face evaluation on this patient. I have reviewed and agree with the documented findings and care plan as documented by the CHEMICAL WORKER. History and Exam by me shows: Patient with risk factors for CAD and abnormal stress test with possible high risk findings. Repeatedly declined cardiac catheterization. He is at elevated risk for cardiovascular events perioperatively as he undergoes urgent intermediate surgery. Thanks for the consult, please call with questions. Porfirio Arechiga MD FAC Assessment and Plan Discussion w patient/family: The assessment and plan as outlined above was discussed with the patient and/or family members who expressed understanding and agreement. All questions were answered. Thank you for involving us in the care of your patient. Please call with any questions. History of Present Illness History of present illness: Mr. Wilkerson is a 79 year old male All Systems Review: The remainder of the systems were reviewed and are negative Physical Examination Vital Signs, Last 4 Hours Temp Pulse Resp BP Pulse Ox 05/31/19 19:56 98.2 F 97 15 194/96 98 Results 05/31/19 03:59 05/31/19 03:59 Lab Results 05/31/19 05/31/19 03:59 03:59 WBC 9.3 Hgb 12.4 L Hct 38.3 Plt Count 313 Sodium 140 Potassium 3.3 L Chloride 105 Carbon Dioxide 27 BUN 25 H Creatinine 1.35 H Glucose 211 H Calcium 8.9
--- NOTE | 2019-05-31 17:44 | Anesthesia Evaluation PreOp ---
Date of Encounter: 05/31/19 Time of Encounter: 17:39 - Past History Planned Operation: Right femur removal hardware Cardiac History: HTN, Hyperlipidemia, Other (Per cardiology: CAD -ECG with no acute ischemic changes noted. -Poor functional capacity. -Of note, had scottie forrest abnormal stress 2015 which showed fixed defect inferior wall, basal and mid anterolateral wall ischemia with moderate reversibility, evidence of TID. Patient was seen by outpatient cardiology and recommended for C, however patient declined. Patient continues to decline invasive cardiology evaluation. -TTE 10/2018 with LVEF 45-50%, moderate diastolic dysfunction, The apical inferior, mid inferior, basal inferior, mid anterior lateral, basal anterior lateral, mid inferior lateral and basal inferior lateral kirby were hypokinetic. -Of note, last surgery 10/2018 under general anesthesia. -With markedly abnormal stress test 2015, poor functional capacity, and abnormal TTE 10/2018, patient would be at high risk for cardiovascular complications in the marcie- operative time frame. 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: Other (Parkinson's) Other Medical History: Renal (CKD stage 3), Diabetes Type II (poorly controlled) Anesthesia History: No Prior Anesthetic Complications, Past Anesthesia (R hip TFN 10/2018, GETA with Twining without complications) Alcohol Use: none Drug use: none Medications and Allergies Glimepiride [Amaryl] 4 mg PO DAILY 10/17/18 [History] Loratadine [Claritin] 10 mg PO DAILY 10/17/18 [History] Potassium Chloride [Klor-Con 10] 10 meq PO DAILY 10/17/18 [History] metFORMIN [Glucophage] 1,000 mg PO BIDWM 10/17/18 [History] Aspirin [Lo-Dose Aspirin EC] 81 mg PO DAILY 10/18/18 [History] Atorvastatin [Lipitor] 40 mg PO MOWEFR 10/18/18 [History] Nitroglycerin [Nitrostat] 0.4 mg SL Q5MIN PRN MDD [id number] CALL 911 10/18/18 [History] Vit A/Vit C/Vit E/Zinc/Copper [Icaps Areds Softgel] 1 cap PO DAILY 10/18/18 [Hi story] Lisinopril/Hydrochlorothiazide [Lisinopril-Hctz 20-25 mg Tab] 20 mg PO DAILY 05/30/19 [History] Allergy/AdvReac Type Severity Reaction Status Date / Time Penicillins AdvReac passed out Verified 10/18/18 11:54 - Meds/Allergy Pre-op Review Medications Reviewed: Yes Allergies Reviewed: Yes Beta Blockers on Current Med List: No Anesthesia Results - Labs 05/31/19 03:59 05/31/19 03:59 - Imaging EKG: report reviewed ( Interpretive Statements Sinus rhythm Prolonged [place] interv al Right bundle branch block LVH with IVCD and secondary repol abnrm Inferior infarct, acute Lateral leads are also involved Electronically Signed On 05-31-2019 9:55:47 EDT by Pablo Raymundo) Additional studies: ECHO 10/2018 EV/EV limited echo w enhance Impressions: Limited Echo with LV contrast. LVEF 45-50%. Mild segmental left ventricular systolic dysfunction. Ordering physician notified via Snip2Code. Left Ventricular Wall Motion: Rest Echo Findings The apical inferior, mid inferior, basal inferior, mid anterior lateral, basal anterior lateral, mid inferior lateral and basal inferior lateral kirby were hypokinetic. All other wall segments showed normal motion. stress 09/2015 Impression: Perfusion imaging demonstrates a fixed defect involving the inferior wall in which a prior infarct cannot be ruled out. There is associated ischemia involving the basal and mid anterolateral and inferolateral kirby with moderate reversibility, SDS 7. Pharmacologic ECG was negative for ischemia at the level of heart rate achieved. Patient had no chest pain with stress. Normal hemodynamic response. Gated EF = 59%. The LV is not dilated. There is visual evidence of TID. Findings communicated to ordering provider. Anesthesia Exam Vital Signs/O2 Sat, Most Current Temp Pulse Resp BP Pulse Ox 98.0 F 94 17 168/89 96 05/31/19 15:55 05/31/19 15:55 05/31/19 15:55 05/31/19 15:55 05/31/19 15:55 Weight: 67kg NPO (# of Hours): >8 - HEENT Pupil (Motor): Pupils equal, EOMI Mallampati: II Teeth: Missing Denture Type: Upper: Complete, Lower: Partial Oral Opening: Greater than 3 - CONE CLASSIFIER TENDER LOC: Oriented [employer]E [employer]IER TENDER Motor: Normal RUE, Normal LUE, Normal RLE, Normal LLE, Normal Face [employer]E [employer]IER TENDER Sensory: Normal: RUE, LUE, RLE, LLE, Face - Cardiac Rhythm: Regular - Pulmonary Breath Sounds: bilateral Clear Respiratory Effort: Symmetrical Anesthesia Assess/Plan ASA Score: 4 Level of consciousness: Cooperative Anesthetic Plan: General (plan GETA , sade, increased on periop cardiac complications including FL, arrhythmias, , pt expressed understanding) Monitoring Plan: Standard Monitors, A-Line Recovery Plan: ICU
[2019-05-31] MEDS ORDERED: Insulin DETEMIR 100 UNIT/ML X5UNITS SQ SCH (21:00)
--- NOTE | 2019-05-31 22:13 | Orthopedics Progress Note ---
Date of Encounter: 05/31/19 Time of Encounter: 12:00 - Assessment and Plan (1) Hardware failure Current Visit: Yes Status: Acute (2) Closed right femoral fracture Current Visit: Yes Status: Acute Qualifiers: Encounter type: initial encounter Femur location: unspecified portion of femur Fracture morphology: unspecified fracture morphology Qualified Code(s): S72.91XA - Unspecified fracture of right femur, initial encounter for closed fracture Subjective Principal diagnosis: right hip fracture Interval history: Patient is a pleasant 79 year old gentleman that presents to [facility] for inability to ambulate. Patient relates he had increasing pain over the appx 1 week prior to admission worsening to point of inability to ambulate. Patient is s/p right hip IM nail Oct 2018 for right hip fracture sustained after a fall. Patient denies any recent trauma directly to the hip, however, he admits to stooping to tow picker a piece of paper roughly a month ago and lost his balance causing him to fall however patient states he his the right side of his head on the desk and fell onto his left arm/shoulder. He denies seeking any evaluation or care at the time. 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 He states the therapy had been helping up until this past week. Patient a&Ox3 No family at bedside. No gross deformities noted Left lower extremity unremarkable with near full hip, knee and ankle motion. Right hip and proximal thigh tender to palpation No pain with palpaion lower leg. No calf tenderness, erythema, warmth bilaterally Right ankle motion intact. Sensation intact distally DP pulses 2+ bilaterally Xrays reviewed revealing: "Acute traumatic fracture of the proximal femoral intramedullary amarilys at the level of the screw within adjacent oblique fracture of the proximal femur." Case reviewed again with Dr. Whitney. Informed consent reviewed with patient and after satisfaction of discussion re: risks/benefits/recovery discussed with patient, informed consent obtained. NPO midnight Nonweightbearing with no hip motion to right lower extremity Surgery for removal of hardware and revision right hip IM nail 06/01 Objective Vital signs: Vital Signs Temp Pulse Resp BP Pulse Ox 05/31/19 19:56 98.2 F 97 15 194/96 98 05/31/19 15:55 98.0 F 94 17 168/89 96 05/31/19 10:54 98.3 F 91 16 168/88 92 05/31/19 09:01 98.5 F 84 16 163/73 97 05/31/19 03:02 98.7 F 76 16 170/86 96 05/30/19 22:54 98.6 F 85 16 161/75 96 Intake and Output 05/31/19 05/31/19 05/31/19 07:59 15:59 23:59 Intake Total 1000 / 1000 Output Total 100 / 100 Balance 1000 / 900 -100 / 900 Intake: IV Fluids 1000 / 1000 0.9 % Sodium Chloride 1,000 ML 1000 / 1000 @ 100 mls/hr IVC .Q10H GEOFF Rx#: [id number] Output: Urine 100 / 100 Other: Blood Glucose* 175 158 201 - Labs CBC & BMP: 05/31/19 03:59 05/31/19 03:59 Labs: Abnormal lab results RBC 4.15 M/mcL (4.19-5.50) L 05/31/19 03:59 Hgb 12.4 g/dL (12.9-16.9) L 05/31/19 03:59 Potassium 3.3 mEq/L (3.5-5.1) L 05/31/19 03:59 Carbon Dioxide 30 mEq/L (23-29) H 05/30/19 14:24 BUN 25 mg/dL (8-23) H 05/31/19 03:59 Creatinine 1.35 mg/dL (0.70-1.30) H 05/31/19 03:59 Est GFR ( Amer) 52 (> 60) L 05/30/19 14:24 Est GFR (Non-Af Amer) 51 (> 60) L 05/31/19 03:59 Glucose 211 mg/dL (70-105) H 05/31/19 03:59 POC Glucose 158 mg/dL (70-99) H 05/31/19 15:58 Calculated Osmolality 301 (280-300) H 05/31/19 03:59 Consult Discharge Plan - Plan Referrals: Geneva Hua, SWABBER [Primary Care Provider] -
[2019-06-01] MEDS: 0.9 % Sodium Chloride 1,000 ML IVC SCH ×2 (02:50→14:30)
[2019-06-01 04:40] LABS: Basophils # 0.1 K/mcL (0.0-0.2); Basophils % 0.4 %; Eosinophils # 0.1 K/mcL (0.0-0.6); Eosinophils % 1.2 %; Hemoglobin 11.7 g/dL (12.9-16.9); Immature Granulocytes % 0.3 % (0-4); Lymphocytes # 4.5 K/mcL (0.6-4.6); Lymphocytes % 39.3 %; Mean Corpuscular HGB Conc 32.5 g/dL (31.6-35.5); Mean Corpuscular Hemoglobin 30.1 pg (28.0-33.3); Mean Corpuscular Volume 92.5 fL (83.0-100.0); Mean Platelet Volume 11.1 fL (9.4-12.4); Monocytes # 0.7 K/mcL (0.0-1.3); Monocytes % 6.3 %; Platelet Count 322 K/mcL (140-400); Red Blood Count 3.89 M/mcL (4.19-5.50); Red Cell Distribution Width 13.8 % (11.5-14.5); Segmented Neutrophils % 52.5 %; White Blood Count 11.5 K/mcL (4.3-11.1)
[2019-06-01 04:59] LABS: BUN/Creatinine Ratio 15 (6-26); Blood Urea Nitrogen 20 mg/dL (8-23); Carbon Dioxide 25 mEq/L (23-29); Chloride 104 mEq/L (98-107); Glucose 168 mg/dL (70-105); Osmolality,Calculated 296 (280-300); Potassium 3.2 mEq/L (3.5-5.1); Sodium 140 mEq/L (136-145); eGFR For African Americans > 60 (> 60); eGFR For Non-African Americans 53 (> 60)
[2019-06-01] MEDS ORDERED: Ropivacaine/PF 0.5% 30 ML VIAL ONE (06:45)
[2019-06-01] MEDS ORDERED: ROPIVACAINE/PF/NS 0.25% 1 EACH SYRINGE INTRAART ONE (06:46)
[2019-06-01] MEDS ORDERED: *HR* Propofol 200 MG/20 ML VIAL IVP ONE (07:13)
[2019-06-01] MEDS ORDERED: *HR* FentaNYL (PF) 100 MCG/2 ML VIAL ONE (07:13)
[2019-06-01] MEDS ORDERED: Lidocaine -MPF 2% 2 ML VIAL ONE ×2 (07:14→08:58)
[2019-06-01] MEDS ORDERED: *HR* Succinylcholine 200 MG/10 ML VIAL IVP ONE (07:15)
[2019-06-01] MEDS ORDERED: Lidocaine HCL 4 ML Topical Solution (Laryng-O-Jet Kit Sterile Pak) TP ONE (07:16)
[2019-06-01] MEDS ORDERED: Heparin 1,000 UNITS/500 mL 500 ML ONE (07:17)
[2019-06-01] MEDS ORDERED: *HR* Etomidate 40 MG/20 ML VIAL IVP ONE (07:39)
[2019-06-01] MEDS ORDERED: *HR* Remifentanil 1 MG VIAL IVP ONE (07:42)
[2019-06-01] MEDS ORDERED: Clindamycin 900 MG/50 ML 900 MG/50 ML IV.SOLN IVPB ONE ×2 (07:45→07:58)
[2019-06-01] MEDS ORDERED: Dexamethasone 4 MG/ML VIAL ONE (08:00)
[2019-06-01] MEDS ORDERED: Ondansetron 4 MG/2 ML VIAL ONE (08:00)
[2019-06-01] MEDS ORDERED: Acetaminophen IV 1,000 MG/100 ML INFUS..BTL ONE (08:05)
[2019-06-01] MEDS ORDERED: *HR* PHENYLEPHRINE 1,000 MCG/10 ML SYRINGE IVP ONE (08:10)
[2019-06-01] MEDS ORDERED: Potassium Chloride Elixir 20 MEQ/15 ML UDC PO ONE (08:14)
--- NOTE | 2019-06-01 08:54 | Orthopedic Operative Note ---
Date of procedure: 06/01/19 Pre-op diagnosis: Right femoral shaft fracture with fracture of intramedullary nail Post-op diagnosis: same Procedure: Procedure: Right femur removal of hardware and revision open reduction internal joint nail fixation Estimated blood loss: 100 mL Hardware Synthes trochanteric femoral nail 12 mm diameter 440 mm length 1 helical blade 1 distal locking bolt Dictation of procedure: Patient brought to the operating room placed on the operating table after general anesthesia was administered the left leg was place in the well leg watson the right leg was placed in the fracture leg watson the right lower extremity is prepped and draped in sterile surgical fashion patient received IV antibiotics prior skin incision. Fluoroscopy was used throughout the case to help support location of hardware both for removal and insertion. The first incision was made through the old incision mid femur, through the skin and subcutaneous tissue, hemostasis was obtained Bovie cautery. Using careful blunt dissection fascia was identified and sized fascia over the vastus lateralis was identified and incised the distal locking bolt was exposed and removed without incident. Attention was then turned to the proximal incision the incision was made through the skin and subcutaneous tissue, hemostasis was obtained Bovie cautery, this was through the old incision, fascia over the tensor fascia was incised exposing the greater trochanter exposing the nail. Soft tissue was cleaned from the opening. The proximal locking bolt was loosened to allow removal of the helical blade which was done through the distal incision without incident. The extraction device was connected to the proximal portion of the nail which was removed without incident. A distal hole was placed through the entry point proximally across the fracture site through the distal nail fragment poking the inferior aspect of it removing the distal nail fragment without incident. Femur was then reamed over a beaded guidewire to 14 mm and a 12 mm x 440 mm trochanteric femoral nail was placed through the entry point across the fracture site into the distal femur. This was locked proximally with a helical blade placed through the old helical blade opening, and a distal locking bolt placed with fluoroscopic assistance. Cultures were obtained prior to closure before irrigation, position of the hardware as well as fracture reduction was found to be acceptable fluoroscopic assistance. The fascia for both incisions closed with #1 PDS suture superficially for 0 PDS suture was closed with skin mekhi patient was sterile dressing postoperative brace extubated transferred to recovery in stable condition Anesthesia: GETA Surgeon: Anuel Whitney Was there an multimedia production assistant present: Yes Party Plan Dealer: Dean Li Estimated blood loss (cc): 100 Condition: stable Disposition: PACU
--- NOTE | 2019-06-01 09:08 | Anesthesia Procedures ---
Date of Encounter: 06/01/19 Time of Encounter: 07:35 Procedures: Anesthesia - Arterial Line Consent obtained: written consent Time out performed: Yes Sedation: Fentanyl (mcg): 50 Supplemental Oxygen via Nasal Cannula (L/min): 2 Local Anesthetic: Other (lidocaine 2%) Amount of Anesthetic used (mls): 0.5 Size (Gauge): 20 Length (inches): 1 3/4 Technique Used: sterile prep, guide wire technique, direct puncture technique Post-Procedure: line taped into place, dry sterile dressing placed Patient tolerated procedure: well, no complications Complications: none Site: Radial L Vitals: 190/80, hr 80, 16, 97
--- NOTE | 2019-06-01 10:05 | Anesthesia Evaluation Post Op ---
Date of Encounter: 06/01/19 Time of Encounter: 10:04 - Vital Signs Vital Signs: Selected Entries 06/01/19 09:23 06/01/19 09:43 Temperature 98.9 F Pulse Rate 86 Respiratory Rate 16 Blood Pressure 168/90 O2 Sat by Pulse Oximetry 100 - Lungs Lungs: Clear Ascult./Percussion - Airway Airway: Non-obstructed - Cardiovascular Regular Rate - Mental Status Mental Status: Alert & Oriented, Answers Appropriately - Pain Pain Scale: 2 Pain Scale used: Numeric (1 - 10) - Nausea Vomiting Nausea Vomiting: Not Present - Hydration Hydration: Ice chips, Gore catheter - Discharge PostOp Status: Transfer Patient to floor
[2019-06-01 10:07] LABS: Hematocrit 36.7 % (37.5-50.1); Hemoglobin 11.6 g/dL (12.9-16.9)
[2019-06-01] MEDS ORDERED: traMADol 50 MG TABLET PO PRN (10:37)
[2019-06-01] MEDS ORDERED: *HR* Dextrose 50 % in Water (Syg) 50 ML SYRINGE IVP PRN (10:37)
[2019-06-01] MEDS ORDERED: Dextrose Gel 15 GM/37.5 ML TUBE PO PRN ×2 (10:37)
[2019-06-01] MEDS ORDERED: Clindamycin 900 MG/50 ML 900 MG/50 ML IV.SOLN IVPB SCH (10:37)
[2019-06-01] MEDS ORDERED: Sennosides 8.6 MG TABLET PO PRN (10:37)
[2019-06-01] MEDS ORDERED: Naloxone 0.4 MG/ML INJ IVP PRN ×2 (10:37)
[2019-06-01] MEDS ORDERED: D5% in Water 1,000 ML IVC PRN (10:37)
[2019-06-01] MEDS ORDERED: Nitroglycerin 0.4 MG TAB.SUBL SL PRN (10:37)
[2019-06-01 11:27] LABS: Bilirubin,Urine Negative (Negative); Blood,Urine Negative (Negative); Clarity,Urine Clear (Clear); Color,Urine Yellow (Yellow); Glucose,Urine (UA) 250 mg/dL (Normal); Ketones,Urine Trace mg/dL (Negative); Leukocyte Esterase,Urine Negative (Negative); Nitrite,Urine Negative (Negative); PH,Urine 6.5 pH Units (5.0-8.0); Protein,Urine 30 mg/dL (Neg-Trace); Specific Gravity,Urine 1.019 (1.010-1.025); Urobilinogen,Urine Normal (Normal)
[2019-06-01 11:30] LABS: Bacteria,Urine None Seen per hpf (None-Few); Hyaline Casts,Urine None Seen per lpf (None-Few); RBC,Urine 0-3 per hpf (0-3); Squamous Epithelial Cell,Urine None Seen per lpf (None-Few); WBC,Urine 0-3 per hpf (0-3)
--- NOTE | 2019-06-01 15:31 | Internal Med Progress Note ---
Hospitalist Progress Note - Encounter Date of Encounter: 06/01/19 Time of Encounter: 15:28 - Subjective Interval History: Patient was seen and examined at bedside today after his surgery this morning. Patient was initially confused. However, after brief episode of confusion status post surgery patient was alert and oriented 3. Patient reported right hip pain which is 6-7 out of 10 in severity, sharp and achy, radiates down his leg, and worsens with movement. - Exam Vitals: Temp Pulse Resp BP Pulse Ox 98.4 F 91 16 157/73 100 06/01/19 12:41 06/01/19 12:41 06/01/19 12:41 06/01/19 12:41 06/01/19 12:41 Exam: GENERAL: Not in distress. Alert and Oriented CHEST AND LUNGS: Normal breath sounds, no wheezes or crackles HEART: S1 and S2 normal, no murmurs ABDOMEN: Soft, nontender, no organomegaly SKIN: Normal color, no rahses, no lesions EXTREMITIES: Well-healed longitudinal surgical scar over right hip, moderate swelling and tenderness of the lateral right proximal thigh. Dressing in place laterally. NEUROLOGICAL: Normal cognition, normal motor and sensory exam. - Assessment and Plan (1) Closed right femoral fracture Current Visit: Yes Status: Acute Assessment and Plan: Patient had ORIF 10/17/2018 Patient was admitted to the hospital due to right hip pain. Patient is currently status post Right femur removal of hardware and revision open reduction internal joint nail fixation POD # 0 Continue pain management. (2) Chronic kidney disease, stage III (moderate) Current Visit: No Status: Chronic Assessment and Plan: We will monitor creatinine Avoid nephrotoxins (3) Diabetes mellitus, type 2 Current Visit: No Status: Chronic Assessment and Plan: Accu-Cheks Sliding scale Hold home metformin and Amaryl (4) Essential hypertension Current Visit: No Status: Chronic Assessment and Plan: Continue home medication (5) Hyperlipidemia Current Visit: Yes Status: Chronic Assessment and Plan: Continue statins (6) DVT prophylaxis Current Visit: Yes Status: Acute Assessment and Plan: PCD's - Time Spent with Patient Total time spent is greater than 50% in coordination of care (as documented) at patient's floor/unit and/or counseling patient: 25 - 35 minutes Plan of Care Discussed with: patient Internal Medicine: Result - Labs CBC & Chem 7: 06/01/19 09:55 06/01/19 03:48 Labs: Short CBC 06/01/19 06/01/19 Range/Units 03:48 09:55 WBC 11.5 H (4.3-11.1) K/mcL Hgb 11.7 L 11.6 L (12.9-16.9) g/dL Hct 36.0 L 36.7 L (37.5-50.1) % Plt Count 322 (140-400) K/mcL Neutrophils # 6.0 (1.6-8.9) K/mcL BMP 06/01/19 03:48 Sodium 140 Potassium 3.2 L Chloride 104 Carbon Dioxide 25 BUN 20 Creatinine 1.30 Glucose 168 H Calcium 9.0 Urine 06/01/19 Range/Units 11:15 Urine Color Yellow (Yellow) Urine Clarity Clear (Clear) Urine pH 6.5 (5.0-8.0) pH Units Ur Specific [place] 1.019 (1.010-1.025) Urine Protein 30 H (Neg-Trace) mg/dL Urine Glucose (UA) 250 H (Normal) mg/dL - Impressions Impressions Pelvis X-Ray 05/30/19 13:42 IMPRESSION: Fracture of the intramedullary amarilys extending through the femur at the level of the cortical screw with oblique comminuted fracture through the proximal diaphysis of the femur. D/ / 05/30/2019 13:46:05 Alex Morillo MD / Amelia Jorgensen Interpreting Provider: Alex Morillo MD Femur X-Ray 06/01/19 09:43 IMPRESSION: Intraprocedural fluoroscopic spot images as above. See separate procedure report for more information. D/ / Leroy Rodriguez MD / Leryo Rodriguez MD Interpreting Provider: Leroy Rodriguez MD Fluoroscopy 06/01/19 09:43 IMPRESSION: Intraprocedural fluoroscopic spot images as above. See separate procedure report for more information. D/ / Leroy Rodriguez MD / Leroy Rodriguez MD Interpreting Provider: Leroy Rodriguez MD Hip X-Ray 06/01/19 10:29 IMPRESSION: Anatomic alignment of the right femur status post recent ORIF revision due to an acute proximal femur fracture. No evidence of hardware complication. D/ / Bobo Barillas MD / Bobo Barillas MD Interpreting Provider: Bobo Barillas MD Consult Discharge Plan - Plan Referrals: Geneva Hua, HOSPITAL TECHNICIAN [Primary Care Provider] - (1) Closed right femoral fracture Qualifiers: Encounter type: initial encounter Femur location: unspecified portion of fe mur Fracture morphology: unspecified fracture morphology Qualified Code(s): S72.91XA - Unspecified fracture of right femur, initial encounter for closed fracture (3) Diabetes mellitus, type 2 Qualifiers: Diabetes mellitus salvage determiner insulin use: without residential use Diabetes mellitus complication status: with hyperglycemia Qualified Code(s): E11.65 - Type 2 diabetes mellitus with hyperglycemia (5) Hyperlipidemia Qualifiers: Hyperlipidemia type: mixed hyperlipidemia Qualified Code(s): E78.2 - Mixed hyperlipidemia
[2019-06-01] MEDS: Insulin LISPRO 300 UNITS/3 ML VIAL SQ SCH ×3 (17:08→22:09)
[2019-06-01] MEDS: Clindamycin 900 MG/50 ML 900 MG/50 ML IV.SOLN IVPB SCH ×2 (17:12→23:28)
[2019-06-01] MEDS: *HR* OxyCODONE Immed Rel 5 MG TABLET PO PRN (20:20)
[2019-06-01] MEDS: Insulin DETEMIR 100 UNIT/ML X5UNITS SQ SCH (20:21)
[2019-06-02] MEDS: 0.9 % Sodium Chloride 1,000 ML IVC SCH ×3 (01:52→22:48)
[2019-06-02 05:26] LABS: Basophils % 0.2 %; Eosinophils % 0.1 %; Hematocrit 31.2 % (37.5-50.1); Hemoglobin 10.3 g/dL (12.9-16.9); Immature Granulocytes % 0.3 % (0-4); Lymphocytes # 4.2 K/mcL (0.6-4.6); Lymphocytes % 32.8 %; Mean Corpuscular Hemoglobin 30.6 pg (28.0-33.3); Mean Corpuscular Volume 92.6 fL (83.0-100.0); Mean Platelet Volume 10.9 fL (9.4-12.4); Monocytes # 1.1 K/mcL (0.0-1.3); Monocytes % 8.3 %; Neutrophils # 7.5 K/mcL (1.6-8.9); Platelet Count 315 K/mcL (140-400); Red Blood Count 3.37 M/mcL (4.19-5.50); Red Cell Distribution Width 13.3 % (11.5-14.5); Segmented Neutrophils % 58.3 %; White Blood Count 12.9 K/mcL (4.3-11.1)
[2019-06-02 05:45] LABS: Calcium 8.4 mg/dL (8.6-10.3); Potassium 3.8 mEq/L (3.5-5.1)
[2019-06-02] MEDS: *HR* OxyCODONE Immed Rel 5 MG TABLET PO PRN (06:46)
--- NOTE | 2019-06-02 08:52 | Orthopedics Progress Note ---
Date of Encounter: 06/02/19 Time of Encounter: 08:52 Subjective Principal diagnosis: right hip fracture Interval history: Patient was seen this morning doing well without complaints. Afebrile vital signs stable. Operative extremity: Neurovascularly intact Dressing clean dry and intact Calves nontender Assessment and plan: Continue with postoperative care Hematocrit 31 Objective Vital signs: Vital Signs Temp Pulse Resp BP Pulse Ox 06/02/19 06:39 98.9 F 87 16 148/76 96 06/02/19 03:54 99.2 F 96 17 156/72 96 06/01/19 22:49 99.0 F 96 17 154/78 96 06/01/19 19:20 99.7 F H 93 17 149/77 97 06/01/19 13:40 98.8 F 99 16 154/81 94 06/01/19 12:41 98.4 F 91 16 157/73 100 06/01/19 11:41 97.9 F 78 16 172/81 99 06/01/19 11:11 97.9 F 83 15 164/77 97 06/01/19 10:41 98.6 F 90 15 179/86 96 06/01/19 10:23 99.0 F 89 17 174/86 98 06/01/19 10:13 99.0 F 88 15 171/93 98 06/01/19 10:03 99.0 F 90 14 169/88 97 06/01/19 09:53 99.0 F 90 14 174/87 97 06/01/19 09:43 86 16 168/90 100 06/01/19 09:33 85 16 173/85 99 06/01/19 09:23 98.9 F 84 16 170/87 99 Intake and Output 06/01/19 06/02/19 06/02/19 23:59 07:59 15:59 Intake Total 50 / 1050 1000 / 1000 Output Total 125 / 375 150 / 150 Balance -75 / 675 850 / 850 Intake: IV Fluids 50 / 1050 1000 / 1000 0.9 % Sodium Chloride 1,000 ML 1000 / 1000 @ 100 mls/hr IVC .Q10H GEOFF Rx#: [id number] Cleocin Premix 900 MG/50 ML 900 50 / 50 mg In 50 ml @ 50 mls/hr IVPB Q8HR GEOFF Rx#:[id number] Output: Urine 125 / 275 150 / 150 Other: # Voids 1 1 # Urine Diapers 1 Weight 67.6 kg Blood Glucose* 305 233 Patient Weight 06/02/19 23:59 Weight 67.6 kg - Labs CBC & BMP: 06/02/19 05:07 06/02/19 05:07 Labs: Abnormal lab results WBC 12.9 K/mcL (4.3-11.1) H 06/02/19 05:07 RBC 3.37 M/mcL (4.19-5.50) L 06/02/19 05:07 Hgb 10.3 g/dL (12.9-16.9) L 06/02/19 05:07 Hct 31.2 % (37.5-50.1) L 06/02/19 05:07 Potassium 3.2 mEq/L (3.5-5.1) L 06/01/19 03:48 Carbon Dioxide 22 mEq/L (23-29) L 06/02/19 05:07 BUN 24 mg/dL (8-23) H 06/02/19 05:07 Creatinine 1.50 mg/dL (0.70-1.30) H 06/02/19 05:07 Est GFR ( Amer) 54 (> 60) L 06/02/19 05:07 Est GFR (Non-Af Amer) 45 (> 60) L 06/02/19 05:07 Glucose 240 mg/dL (70-105) H 06/02/19 05:07 POC Glucose 233 mg/dL (70-99) H 06/02/19 07:49 Calculated Osmolality 301 (280-300) H 05/31/19 03:59 Calcium 8.4 mg/dL (8.6-10.3) L 06/02/19 05:07 Urine Protein 30 mg/dL (Neg-Trace) H 06/01/19 11:15 Urine Glucose (UA) 250 mg/dL (Normal) H 06/01/19 11:15 Urine Ketones Trace mg/dL (Negative) H 06/01/19 11:15 Consult Discharge Plan - Plan Referrals: Geneva Hua, LEGAL DIRECTOR [Primary Care Provider] -
[2019-06-02] MEDS: Loratadine 10 MG TABLET PO SCH (09:05)
[2019-06-02] MEDS: *HR* OxyCODONE/APAP 5/325 TABLET PO PRN (09:05)
[2019-06-02] MEDS: Insulin LISPRO 300 UNITS/3 ML VIAL SQ SCH ×4 (09:12→21:21)
[2019-06-02] MEDS ORDERED: Saliva Stimulant 100ml BOTTLE PO PRN (13:39)
--- NOTE | 2019-06-02 15:03 | Internal Med Progress Note ---
Hospitalist Progress Note - Encounter Date of Encounter: 06/02/19 Time of Encounter: 15:01 - Subjective Interval History: Pt was seen and examined at bedside. Pt rpeot smoderate painon right hip, aching, 7/10 severity, worsened with movement and relieved by rest. Pt denies fever and chills. Pt denies any chest pain, Paplpitations and SHAQUILLE. - Exam Vitals: Temp Pulse Resp BP Pulse Ox 98.6 F 84 16 144/81 95 06/02/19 10:00 06/02/19 10:00 06/02/19 10:00 06/02/19 10:00 06/02/19 10:00 Exam: GENERAL: Not in distress. Alert and Oriented CHEST AND LUNGS: Normal breath sounds, no wheezes or crackles HEART: S1 and S2 normal, no murmurs ABDOMEN: Soft, nontender, no organomegaly SKIN: Normal color, no rahses, no lesions EXTREMITIES: Well-healed longitudinal surgical scar over right hip, moderate swelling and tenderness of the lateral right proximal thigh. Dressing in place laterally. No soakage of dressing with blood NEUROLOGICAL: Normal cognition, normal motor and sensory exam. - Assessment and Plan (1) Closed right femoral fracture Current Visit: Yes Status: Acute Assessment and Plan: Patient is currently status post Right femur removal of hardware and revision open reduction internal joint nail fixation POD # 1 Continue pain management. Orthopedic surgery on consult Appreciate ortho recommendations (2) Chronic kidney disease, stage III (moderate) Current Visit: No Status: Chronic Assessment and Plan: We will monitor creatinine Avoid nephrotoxins (3) Diabetes mellitus, type 2 Current Visit: No Status: Chronic Assessment and Plan: Accu-Cheks Sliding scale Hold home metformin and Amaryl (4) Essential hypertension Current Visit: No Status: Chronic Assessment and Plan: Continue home medication (5) Hyperlipidemia Current Visit: Yes Status: Chronic Assessment and Plan: Continue statins (6) DVT prophylaxis Current Visit: Yes Status: Acute Assessment and Plan: PCD's - Time Spent with Patient Total time spent is greater than 50% in coordination of care (as documented) at patient's floor/unit and/or counseling patient: 25 - 35 minutes Plan of Care Discussed with: patient Internal Medicine: Result - Labs CBC & Chem 7: 06/02/19 05:07 06/02/19 05:07 Labs: Short CBC 06/02/19 Range/Units 05:07 WBC 12.9 H (4.3-11.1) K/mcL Hgb 10.3 L (12.9-16.9) g/dL Hct 31.2 L (37.5-50.1) % Plt Count 315 (140-400) K/mcL Neutrophils # 7.5 (1.6-8.9) K/mcL BMP 06/02/19 05:07 Sodium 136 Potassium 3.8 Chloride 103 Carbon Dioxide 22 L BUN 24 H Creatinine 1.50 H Glucose 240 H Calcium 8.4 L - Impressions Impressions Head CT 06/02/19 11:41 IMPRESSION: No acute intracranial abnormality. 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 Old lacunar infarct versus prominent perivascular space in the left basal ganglia, stable. Mild to moderate parenchymal volume loss. Moderate chronic microvascular disease. D/ / Modesto Dhillon MD / Modesto Dhillon MD Interpreting Provider: Modesto Dhillon MD Consult Discharge Plan - Plan Referrals: Geneva Hua, GROUNDS FOREMAN [Primary Care Provider] - (1) Closed right femoral fracture Qualifiers: Encounter type: initial encounter Femur location: unspecified portion of femur Fracture morphology: unspecified fracture morphology Qualified Code(s): S72.91XA - Unspecified fracture of right femur, initial encounter for closed fracture (3) Diabetes mellitus, type 2 Qualifiers: Diabetes mellitus halfway insulin use: without halfway use Diabetes mellitus complication status: with hyperglycemia Qualified Code(s): E11.65 - Type 2 diabetes mellitus with hyperglycemia (5) Hyperlipidemia Qualifiers: Hyperlipidemia type: mixed hyperlipidemia Qualified Code(s): E78.2 - Mixed hyperlipidemia
[2019-06-02] MEDS ORDERED: Acetaminophen 325 MG TABLET PO ONE (15:42)
[2019-06-02 16:33] LABS: Bilirubin,Urine Negative (Negative); Blood,Urine Trace (Negative); Clarity,Urine Clear (Clear); Color,Urine Yellow (Yellow); Glucose,Urine (UA) Normal (Normal); Ketones,Urine Negative (Negative); Leukocyte Esterase,Urine Negative (Negative); Nitrite,Urine Negative (Negative); PH,Urine 5.5 pH Units (5.0-8.0); Protein,Urine 30 mg/dL (Neg-Trace); Specific Gravity,Urine 1.017 (1.010-1.025); Urobilinogen,Urine Normal (Normal)
[2019-06-02 17:53] LABS: Bacteria,Urine Few per hpf (None-Few); RBC,Urine 0-3 per hpf (0-3); WBC,Urine 0-3 per hpf (0-3)
[2019-06-02] MEDS: Insulin DETEMIR 100 UNIT/ML X5UNITS SQ SCH (21:21)
[2019-06-03] MEDS: *HR* OxyCODONE Immed Rel 5 MG TABLET PO PRN ×3 (00:35→08:18)
[2019-06-03 05:20] LABS: Basophils % 0.3 %; Eosinophils % 0.3 %; Hematocrit 32.5 % (37.5-50.1); Hemoglobin 10.6 g/dL (12.9-16.9); Immature Granulocytes % 0.3 % (0-4); Lymphocytes % 30.3 %; Mean Corpuscular HGB Conc 32.6 g/dL (31.6-35.5); Mean Corpuscular Volume 92.1 fL (83.0-100.0); Mean Platelet Volume 11.1 fL (9.4-12.4); Monocytes # 1.2 K/mcL (0.0-1.3); Monocytes % 8.7 %; Neutrophils # 7.9 K/mcL (1.6-8.9); Platelet Count 338 K/mcL (140-400); Red Blood Count 3.53 M/mcL (4.19-5.50); Red Cell Distribution Width 13.7 % (11.5-14.5); Segmented Neutrophils % 60.1 %; White Blood Count 13.2 K/mcL (4.3-11.1)
[2019-06-03 05:40] LABS: BUN/Creatinine Ratio 18 (6-26); Blood Urea Nitrogen 23 mg/dL (8-23); Calcium 8.8 mg/dL (8.6-10.3); Carbon Dioxide 18 mEq/L (23-29); Chloride 103 mEq/L (98-107); Glucose 200 mg/dL (70-105); Osmolality,Calculated 289 (280-300); Potassium 3.6 mEq/L (3.5-5.1); Sodium 135 mEq/L (136-145); eGFR For African Americans > 60 (> 60); eGFR For Non-African Americans 53 (> 60)
[2019-06-03] MEDS: Loratadine 10 MG TABLET PO SCH (08:09)
[2019-06-03] MEDS: Insulin LISPRO 300 UNITS/3 ML VIAL SQ SCH ×4 (08:10→20:50)
--- NOTE | 2019-06-03 08:41 | Event Note ---
Date of Encounter: 06/02/19 Time of Encounter: 12:45 Patient seen at bedside. Spouse at bedside. Patient c/o pain and stating feeling "yuck". A&Ox3 though patient is sleepy. Dressing and incision c/d/i No calf tenderness, erythema, or warmth. Knee immobilizer to right knee. Neurovascularly intact b/l LE. Labwork, vitals, and medications reviewed. Pain control: Adequate Participating in therapy. All questions and concerns addressed. Educated on use of incentive spirometer, ambulation, and hydration. Patient educated on post-operative restrictions and care. Addressed: Knee immobilizer to right knee at all times. Remove for hygiene only. This brace aids in stablity of the right lower extremity. Protected weightberaing as tolerated in the brace to right knee. Opsite placed. Keep dressing intact until first follow up appointment. If greater than 50% saturated, notify office, remove dressing and place appropriate dressing back in place. Leave Zipline intact. Opsite dressing is water resistant, not water-proof. OK to shower, but do not get dressing wet. Again, no knee motion when brace is removed including while bathing. Patient course and disposition discussed with Dr. Whitney Keep outpatient follow up as arranged
--- NOTE | 2019-06-03 16:36 | Internal Med Progress Note ---
Hospitalist Progress Note - Encounter Date of Encounter: 06/03/19 Time of Encounter: 16:34 - Subjective Interval History: Patient was seen and examined at bedside today. Pt has spike of fever yeaterday. She did not have any fever and chills overnight. Pt complaint of weakness today. He denied any fever overnight. She had a chest x-ray done yesterday which was negative for any pneumonia. Patient denied any urinary frequency, urgency, and dysuria. She denies any cough, difficulty breathing, and chest pain. - Exam Vitals: Temp Pulse Resp BP Pulse Ox 98.3 F 70 15 154/84 95 06/03/19 16:09 06/03/19 16:06/03/19 16:09 06/03/19 16:06/03/19 16:09 Exam: GENERAL: Not in distress. Alert and Oriented CHEST AND LUNGS: Normal breath sounds, no wheezes or crackles HEART: S1 and S2 normal, no murmurs ABDOMEN: Soft, nontender, no organomegaly SKIN: Normal color, no rahses, no lesions EXTREMITIES: Well-healed longitudinal surgical scar over right hip, moderate swelling and tenderness of the lateral right proximal thigh. Dressing in place laterally. No soakage of dressing with blood NEUROLOGICAL: Normal cognition, normal motor and sensory exam. - Assessment and Plan (1) Closed right femoral fracture Current Visit: Yes Status: Acute Assessment and Plan: Patient is currently status post Right femur removal of hardware and revision open reduction internal joint nail fixation POD # 2 Continue pain management. Orthopedic surgery on consult Appreciate ortho recommendations [facility] in [facility] days. (2) Chronic kidney disease, stage III (moderate) Current Visit: No Status: Chronic Assessment and Plan: We will monitor creatinine Avoid nephrotoxins (3) Diabetes mellitus, type 2 Current Visit: No Status: Chronic Assessment and Plan: Accu-Cheks Sliding scale Hold home metformin and Amaryl (4) Essential hypertension Current Visit: No Status: Chronic Assessment and Plan: Continue home medication (5) Hyperlipidemia Current Visit: Yes Status: Chronic Assessment and Plan: Continue statins (6) DVT prophylaxis Current Visit: Yes Status: Acute Assessment and Plan: PCD's - Time Spent with Patient Total time spent is greater than 50% in coordination of care (as documented) at patient's floor/unit and/or counseling patient: 25 - 35 minutes Plan of Care Discussed with: patient Internal Medicine: Result - Labs CBC & Chem 7: 06/03/19 04:30 06/03/19 04:30 Labs: Short CBC 06/03/19 Range/Units 04:30 WBC 13.2 H (4.3-11.1) K/mcL Hgb 10.6 L (12.9-16.9) g/dL Hct 32.5 L (37.5-50.1) % Plt Count 338 (140-400) K/mcL Neutrophils # 7.9 (1.6-8.9) K/mcL BMP 06/03/19 04:30 Sodium 135 L Potassium 3.6 Chloride 103 Carbon Dioxide 18 L BUN 23 Creatinine 1.30 Glucose 200 H Calcium 8.8 Urine 06/02/19 Range/Units 16:18 Urine Color Yellow (Yellow) Urine Clarity Clear (Clear) Urine pH 5.5 (5.0-8.0) pH Units Ur Specific [place] 1.017 (1.010-1.025) Urine Protein 30 H (Neg-Trace) mg/dL Urine Glucose (UA) Normal (Normal) mg/dL - Impressions Impressions Chest X-Ray 06/02/19 16:03 IMPRESSION: 1. No lobar pneumonia identified. 2. Reticular opacities throughout the lungs favored to represent chronic lung changes. Mild superimposed interstitial edema cannot be excluded. D/ / 06/02/2019 16:09:18 Cher Moses MD / marin Interpreting Provider: Cher Moses MD Consult Discharge Plan - Plan Referrals: Geneva Hua, GREENS TIER [Primary Care Provider] - (1) Closed right femoral fracture Qualifiers: Encounter type: initial encounter Femur location: unspecified portion of femur Fracture morphology: unspecified fracture morphology Qualified Code(s): S72.91XA - Unspecified fracture of right femur, initial encounter for closed fracture (3) Diabetes mellitus, type 2 Qualifiers: Diabetes mellitus fdc insulin use: without fdc use Diabetes mellitus complication status: with hyperglycemia Qualified Code(s): E11.65 - Type 2 diabetes mellitus with hyperglycemia (5) Hyperlipidemia Qualifiers: Hyperlipidemia type: mixed hyperlipidemia Qualified Code(s): E78.2 - Mixed hyperlipidemia
[2019-06-03] MEDS: 0.9 % Sodium Chloride 1,000 ML IVC SCH (19:47)
[2019-06-03] MEDS: *HR* OxyCODONE/APAP 5/325 TABLET PO PRN (20:49)
[2019-06-03] MEDS: Insulin DETEMIR 100 UNIT/ML X5UNITS SQ SCH (20:50)
[2019-06-03] MEDS ORDERED: Acetaminophen 325 MG TABLET PO PRN (23:16)
--- NOTE | 2019-06-03 23:21 | Orthopedics Progress Note ---
Date of Encounter: 06/03/19 Time of Encounter: 11:30 - Assessment and Plan (1) Hardware failure Current Visit: Yes Status: Acute (2) Closed right femoral fracture Current Visit: Yes Status: Acute Qualifiers: Encounter type: initial encounter Femur location: unspecified portion of femur Fracture morphology: unspecified fracture morphology Qualified Code(s): S72.91XA - Unspecified fracture of right femur, initial encounter for closed fracture Subjective Principal diagnosis: right hip fracture Interval history: Patient seen at bedside. Spouse at bedside. Patient drowsy. Patient's spouse st ates that patient has been sweating and pulling his clothing off secondary to being so warm. Patient is very drowsy though able to be awakened. Thermostat noted to be set to 80 degrees. Temp reduced to 70 degrees in effort to cool patient who is noted to be undressed except for atens and sheet lying on legs. Dressing and incision c/d/i No calf tenderness, erythema, or warmth. Knee immobilizer to right knee. Neurovascularly intact b/l LE. Labwork, vitals, and medications reviewed. Pain control: Adequate Participating in therapy. All questions and concerns addressed. Educated on use of incentive spirometer, ambulation, and hydration. Patient educated on post-operative restrictions and care. Addressed: Knee immobilizer to right knee at all times. Remove for hygiene only. This brace aids in stablity of the right lower extremity. Protected weightberaing as tolerated in the brace to right knee. Opsite placed. Keep dressing intact until first follow up appointment. If greater than 50% saturated, notify office, remove dressing and place appropriate dressing back in place. Leave Zipline intact. Opsite dressing is water resistant, not water-proof. OK to shower, but do not get dressing wet. Again, no knee motion when brace is removed including while bathing. Patient course and disposition discussed with Dr. Whitney Keep outpatient follow up as arranged Case discussed with hospitalist re: diaphoresis and lethargy Objective Vital signs: Vital Signs Temp Pulse Resp BP Pulse Ox 06/03/19 23:00 98.6 F 98 20 148/74 96 06/03/19 21:00 96 06/03/19 19:58 98.9 F 93 19 165/75 96 06/03/19 16:09 98.3 F 70 15 154/84 95 06/03/19 11:52 98.6 F 91 17 153/74 94 06/03/19 07:16 98.2 F 105 17 163/80 96 06/03/19 04:03 99.2 F 106 17 184/102 95 06/03/19 03:53 98.9 F 107 18 187/101 96 Intake and Output 06/03/19 06/03/19 06/03/19 07:59 15:59 23:59 Intake Total 1000 / 1300 300 / 1300 Output Total 700 / 975 275 / 975 Balance -700 / 325 1000 / 325 25 / 325 Intake: IV Fluids 1000 / 1000 0.9 % Sodium Chloride 1,000 ML 1000 / 1000 @ 100 mls/hr IVC .Q10H [facility] Rx#: [id number] Oral 300 / 300 Output: Urine 700 / 975 275 / 975 Other: # Urine Diapers 2 Weight 67.8 kg Blood Glucose* 208 192 186 Patient Weight 06/03/19 23:59 Weight 67.8 kg - Labs CBC & BMP: 06/03/19 04:30 06/03/19 04:30 Labs: Abnormal lab results WBC 13.2 K/mcL (4.3-11.1) H 06/03/19 04:30 RBC 3.53 M/mcL (4.19-5.50) L 06/03/19 04:30 Hgb 10.6 g/dL (12.9-16.9) L 06/03/19 04:30 Hct 32.5 % (37.5-50.1) L 06/03/19 04:30 Sodium 135 mEq/L (136-145) L 06/03/19 04:30 Potassium 3.2 mEq/L (3.5-5.1) L 06/01/19 03:48 Carbon Dioxide 18 mEq/L (23-29) L 06/03/19 04:30 BUN 24 mg/dL (8-23) H 06/02/19 05:07 Creatinine 1.50 mg/dL (0.70-1.30) H 06/02/19 05:07 Est GFR ( Amer) 54 (> 60) L 06/02/19 05:07 Est GFR (Non-Af Amer) 53 (> 60) L 06/03/19 04:30 Glucose 200 mg/dL (70-105) H 06/03/19 04:30 POC Glucose 186 mg/dL (70-99) H 06/03/19 20:45 Calculated Osmolality 301 (280-300) H 05/31/19 03:59 Calcium 8.4 mg/dL (8.6-10.3) L 06/02/19 05:07 Urine Protein 30 mg/dL (Neg-Trace) H 06/02/19 16:18 Urine Glucose (UA) 250 mg/dL (Normal) H 06/01/19 11:15 Urine Ketones Trace mg/dL (Negative) H 06/01/19 11:15 Urine Blood Trace (Negative) H 06/02/19 16:18 Ur Culture Indicated? YES (NO) A 06/02/19 16:18 Consult Discharge Plan - Plan Referrals: Geneva Hua, HEALTH POLICY NURSE [Primary Care Provider] -
[2019-06-04] MEDS: *HR* OxyCODONE/APAP 5/325 TABLET PO PRN ×4 (02:49→22:40)
[2019-06-04] MEDS: 0.9 % Sodium Chloride 1,000 ML IVC SCH ×2 (05:05→17:17)
--- NOTE | 2019-06-04 08:10 | Orthopedics Progress Note ---
Date of Encounter: 06/04/19 Time of Encounter: 08:09 Subjective Principal diagnosis: right hip fracture Interval history: No overnight issues. Pain is controlled. No nausea/vomiting. No CP/SOB. Vitals reviewed Extremity exam: Dressing clean, dry and intact No erythema or drainage Distally neurovascularly intact to motor/sensory exam No calf pain or tenderness s/p right IM nail revision Continue current management PO pain and nausea control Protected weightbearing in knee immobilizer Objective Vital signs: Vital Signs Temp Pulse Resp BP Pulse Ox 06/04/19 02:55 98.4 F 83 16 158/78 98 06/03/19 23:00 98.6 F 98 20 148/74 96 06/03/19 21:00 96 06/03/19 19:58 98.9 F 93 19 165/75 96 06/03/19 16:09 98.3 F 70 15 154/84 95 06/03/19 11:52 98.6 F 91 17 153/74 94 Intake and Output 06/03/19 06/04/19 06/04/19 23:59 07:59 15:59 Intake Total 300 / 1300 950 / 950 Output Total 275 / 975 300 / 300 Balance 25 / 325 650 / 650 Intake: IV Fluids 950 / 950 0.9 % Sodium Chloride 1,000 ML 950 / 950 @ 100 mls/hr IVC .Q10H [facility] Rx#: [id number] Oral 300 / 300 0 / 0 Output: Urine 275 / 975 300 / 300 Other: # Urine Diapers 2 Weight 68.03 kg Blood Glucose* 186 Patient Weight 06/04/19 23:59 Weight 68.03 kg - Labs CBC & BMP: 06/03/19 04:30 06/03/19 04:30 Labs: Abnormal lab results WBC 13.2 K/mcL (4.3-11.1) H 06/03/19 04:30 RBC 3.53 M/mcL (4.19-5.50) L 06/03/19 04:30 Hgb 10.6 g/dL (12.9-16.9) L 06/03/19 04:30 Hct 32.5 % (37.5-50.1) L 06/03/19 04:30 Sodium 135 mEq/L (136-145) L 06/03/19 04:30 Potassium 3.2 mEq/L (3.5-5.1) L 06/01/19 03:48 Carbon Dioxide 18 mEq/L (23-29) L 06/03/19 04:30 BUN 24 mg/dL (8-23) H 06/02/19 05:07 Creatinine 1.50 mg/dL (0.70-1.30) H 06/02/19 05:07 Est GFR ( Amer) 54 (> 60) L 06/02/19 05:07 Est GFR (Non-Af Amer) 53 (> 60) L 06/03/19 04:30 Glucose 200 mg/dL (70-105) H 06/03/19 04:30 POC Glucose 186 mg/dL (70-99) H 06/03/19 20:45 Calculated Osmolality 301 (280-300) H 05/31/19 03:59 Calcium 8.4 mg/dL (8.6-10.3) L 06/02/19 05:07 Urine Protein 30 mg/dL (Neg-Trace) H 06/02/19 16:18 Urine Glucose (UA) 250 mg/dL (Normal) H 06/01/19 11:15 Urine Ketones Trace mg/dL (Negative) H 06/01/19 11:15 Urine Blood Trace (Negative) H 06/02/19 16:18 Ur Culture Indicated? YES (NO) A 06/02/19 16:18 Consult Discharge Plan - Plan Referrals: Geneva Hua, OWNER/OPERATOR [Primary Care Provider] -
[2019-06-04] MEDS: Insulin LISPRO 300 UNITS/3 ML VIAL SQ SCH ×4 (08:54→22:42)
[2019-06-04] MEDS: Loratadine 10 MG TABLET PO SCH (08:54)
[2019-06-04 13:01] LABS: BUN/Creatinine Ratio 20 (6-26); Blood Urea Nitrogen 25 mg/dL (8-23); Calcium 8.8 mg/dL (8.6-10.3); Carbon Dioxide 21 mEq/L (23-29); Chloride 105 mEq/L (98-107); Glucose 222 mg/dL (70-105); Osmolality,Calculated 287 (280-300); Potassium 3.6 mEq/L (3.5-5.1); Sodium 133 mEq/L (136-145); eGFR For African Americans > 60 (> 60); eGFR For Non-African Americans 56 (> 60)
[2019-06-04 13:08] LABS: Basophils % 0.2 %; Eosinophils % 0.1 %; Hematocrit 30.6 % (37.5-50.1); Hemoglobin 10.3 g/dL (12.9-16.9); Immature Granulocytes % 0.7 % (0-4); Lymphocytes # 2.8 K/mcL (0.6-4.6); Lymphocytes % 18.7 %; Mean Corpuscular HGB Conc 33.7 g/dL (31.6-35.5); Mean Corpuscular Hemoglobin 30.3 pg (28.0-33.3); Mean Platelet Volume 11.4 fL (9.4-12.4); Monocytes # 1.2 K/mcL (0.0-1.3); Neutrophils # 10.8 K/mcL (1.6-8.9); Platelet Count 364 K/mcL (140-400); Red Cell Distribution Width 13.8 % (11.5-14.5); Segmented Neutrophils % 72.3 %; White Blood Count 14.9 K/mcL (4.3-11.1)
--- NOTE | 2019-06-04 15:01 | Internal Med Progress Note ---
Hospitalist Progress Note - Encounter Date of Encounter: 06/04/19 Time of Encounter: 14:59 - Subjective Interval History: Patient was seen and examined at bedside today. Patient reports his pain and right hip is well controlled. Denies any fever and chills. Denies any chest pain, palpitation, and shortness of breath. - Exam Vitals: Temp Pulse Resp BP Pulse Ox 99.2 F 92 16 159/83 94 06/04/19 14:56 06/04/19 14:56 06/04/19 14:56 06/04/19 14:56 06/04/19 14:56 Exam: GENERAL: Not in distress. Alert and Oriented CHEST AND LUNGS: Normal breath sounds, no wheezes or crackles HEART: S1 and S2 normal, no murmurs ABDOMEN: Soft, nontender, no organomegaly SKIN: Normal color, no rahses, no lesions EXTREMITIES: Well-healed longitudinal surgical scar over right hip, moderate swelling and tenderness of the lateral right proximal thigh. Dressing in place laterally. No soakage of dressing with blood NEUROLOGICAL: Normal cognition, normal motor and sensory exam. - Assessment and Plan (1) Closed right femoral fracture Current Visit: Yes Status: Acute Assessment and Plan: Patient is currently status post Right femur removal of hardware and revision open reduction internal joint nail fixation POD # 3 Continue pain management. Orthopedic surgery on consult Appreciate ortho recommendations Anticipated discharge to senior care facility in couple of days. (2) Leukocytosis Current Visit: Yes Status: Acute Assessment and Plan: Likely reactive distress after surgery. Patient had a spike in temperature on June 02. Patient's chest x-ray on June 02 was negative for any acute infectious process. UA was collected on June 02 and urine culture came back today which showed no growth. Patient has been afebrile for 48 hours. No antibiotic indicated at this time. We will continue to monitor. (3) Chronic kidney disease, stage III (moderate) Current Visit: No Status: Chronic Assessment and Plan: We will monitor creatinine Avoid nephrotoxins (4) Diabetes mellitus, type 2 Current Visit: No Status: Chronic Assessment and Plan: Accu-Cheks Sliding scale Hold home metformin and Amaryl (5) Essential hypertension Current Visit: No Status: Chronic Assessment and Plan: Continue home medication (6) Hyperlipidemia Current Visit: Yes Status: Chronic Assessment and Plan: Continue statins (7) DVT prophylaxis Current Visit: Yes Status: Acute Assessment and Plan: EPCD's - Time Spent with Patient Total time spent is greater than 50% in coordination of care (as documented) at patient's floor/unit and/or counseling patient: 25 - 35 minutes Plan of Care Discussed with: patient Internal Medicine: Result - Labs CBC & Chem 7: 06/04/19 12:24 06/04/19 12:24 Labs: Short CBC 06/04/19 Range/Units 12:24 WBC 14.9 H (4.3-11.1) K/mcL Hgb 10.3 L (12.9-16.9) g/dL Hct 30.6 L (37.5-50.1) % Plt Count 364 (140-400) K/mcL Neutrophils # 10.8 H (1.6-8.9) K/mcL BMP 06/04/19 12:24 Sodium 133 L Potassium 3.6 Chloride 105 Carbon Dioxide 21 L BUN 25 H Creatinine 1.23 Glucose 222 H Calcium 8.8 Consult Discharge Plan - Plan Referrals: Geneva Hua, HOME HEALTH RN [Primary Care Provider] - (1) Closed right femoral fracture Qualifiers: Encounter type: initial encounter Femur location: unspecified portion of femur Fracture morphology: unspecified fracture morphology Qualified Code(s): S72.91XA - Unspecified fracture of right femur, initial encounter for closed fracture (2) Leukocytosis Qualifiers: Leukocytosis type: unspecified Qualified Code(s): D72.829 - Elevated white blood cell count, unspecified (4) Diabetes mellitus, type 2 Qualifiers: Diabetes mellitus intermediate insulin use: without terminal block assembler use Diabetes jan itus complication status: with hyperglycemia Qualified Code(s): E11.65 - Type 2 diabetes mellitus with hyperglycemia (6) Hyperlipidemia Qualifiers: Hyperlipidemia type: mixed hyperlipidemia Qualified Code(s): E78.2 - Mixed hyperlipidemia
[2019-06-04] MEDS: Insulin DETEMIR 100 UNIT/ML X5UNITS SQ SCH (22:41)
[2019-06-05 02:58] LABS: White Blood Count 13.5 K/mcL (4.3-11.1)
[2019-06-05 02:59] LABS: Basophils % 0.3 %; Eosinophils # 0.1 K/mcL (0.0-0.6); Eosinophils % 0.5 %; Hematocrit 29.8 % (37.5-50.1); Hemoglobin 9.6 g/dL (12.9-16.9); Immature Granulocytes % 0.5 % (0-4); Lymphocytes # 3.1 K/mcL (0.6-4.6); Lymphocytes % 23.1 %; Mean Corpuscular HGB Conc 32.2 g/dL (31.6-35.5); Mean Corpuscular Hemoglobin 29.8 pg (28.0-33.3); Mean Corpuscular Volume 92.5 fL (83.0-100.0); Monocytes # 1.1 K/mcL (0.0-1.3); Monocytes % 8.1 %; Neutrophils # 9.1 K/mcL (1.6-8.9); Platelet Count 389 K/mcL (140-400); Red Blood Count 3.22 M/mcL (4.19-5.50); Red Cell Distribution Width 13.6 % (11.5-14.5); Segmented Neutrophils % 67.5 %
[2019-06-05 03:18] LABS: BUN/Creatinine Ratio 22 (6-26); Blood Urea Nitrogen 26 mg/dL (8-23); Calcium 8.7 mg/dL (8.6-10.3); Carbon Dioxide 21 mEq/L (23-29); Chloride 105 mEq/L (98-107); Glucose 176 mg/dL (70-105); Osmolality,Calculated 293 (280-300); Potassium 3.3 mEq/L (3.5-5.1); Sodium 137 mEq/L (136-145); eGFR For African Americans > 60 (> 60); eGFR For Non-African Americans 59 (> 60)
[2019-06-05] MEDS: 0.9 % Sodium Chloride 1,000 ML IVC SCH (05:20)
[2019-06-05] MEDS: Loratadine 10 MG TABLET PO SCH (08:03)
[2019-06-05] MEDS: Insulin LISPRO 300 UNITS/3 ML VIAL SQ SCH ×4 (08:05→20:56)
--- NOTE | 2019-06-05 15:18 | Internal Med Progress Note ---
Hospitalist Progress Note - Encounter Date of Encounter: 06/05/19 Time of Encounter: 15:16 - Subjective Interval History: Pt was seen adn examined at bedside. He denies any acute issues other than right hip pain. Denies any fever and chills. Patient has been afebrile for more than 48 hours. Anticipate discharge tomorrow to long-term facility. - Exam Vitals: Temp Pulse Resp BP Pulse Ox 98.4 F 92 18 156/82 98 06/05/19 12:37 06/05/19 12:37 06/05/19 12:37 06/05/19 12:37 06/05/19 12:37 Exam: GENERAL: Not in distress. Alert and Oriented CHEST AND LUNGS: Normal breath sounds, no wheezes or crackles HEART: S1 and S2 normal, no murmurs ABDOMEN: Soft, nontender, no organomegaly SKIN: Normal color, no rahses, no lesions EXTREMITIES: Well-healed longitudinal surgical scar over right hip, moderate swelling and tenderness of the lateral right proximal thigh. Dressing in place laterally. No soakage of dressing with blood NEUROLOGICAL: Normal cognition, normal motor and sensory exam. - Assessment and Plan (1) Closed right femoral fracture Current Visit: Yes Status: Acute Assessment and Plan: Patient is currently status post Right femur removal of hardware and revision open reduction internal joint nail fixation POD # 4 Continue pain management. Anticipated discharge to long-term facility tomorrow (2) Leukocytosis Current Visit: Yes Status: Acute Assessment and Plan: Leukocytosis is down trending. Workup for infectious etiology has been negative. No antibiotics indicated (3) Chronic kidney disease, stage III (moderate) Current Visit: No Status: Chronic Assessment and Plan: We will monitor creatinine Avoid nephrotoxins (4) Diabetes mellitus, type 2 Current Visit: No Status: Chronic Assessment and Plan: Accu-Cheks Sliding scale Hold home metformin and Amaryl (5) Essential hypertension Current Visit: No Status: Chronic Assessment and Plan: Continue home medication (6) Hyperlipidemia Current Visit: Yes Status: Chronic Assessment and Plan: Continue statins (7) DVT prophylaxis Current Visit: Yes Status: Acute Assessment and Plan: EPCD's - Time Spent with Patient Total time spent is greater than 50% in coordination of care (as documented) at patient's floor/unit and/or counseling patient: 25 - 35 minutes Plan of Care Discussed with: patient Internal Medicine: Result - Labs CBC & Chem 7: 06/05/19 01:53 06/05/19 01:53 Labs: Short CBC 06/05/19 Range/Units 01:53 WBC 13.5 H (4.3-11.1) K/mcL Hgb 9.6 L (12.9-16.9) g/dL Hct 29.8 L (37.5-50.1) % Plt Count 389 (140-400) K/mcL Neutrophils # 9.1 H (1.6-8.9) K/mcL BMP 06/05/19 01:53 Sodium 137 Potassium 3.3 L Chloride 105 Carbon Dioxide 21 L BUN 26 H Creatinine 1.19 Glucose 176 H Calcium 8.7 Consult Discharge Plan - Plan Referrals: Geneva Hua, SENIOR BENEFITS MANAGER [Primary Care Provider] - (1) Closed right femoral fracture Qualifiers: Encounter type: initial encounter Femur location: unspecified portion of femur Fracture morphology: unspecified fracture morphology Qualified Code(s): S72.91XA - Unspecified fracture of right femur, initial encounter for closed fracture (2) Leukocytosis Qualifiers: Leukocytosis type: unspecified Qualified Code(s): D72.829 - Elevated white blood cell count, unspecified (4) Diabetes mellitus, type 2 Qualifiers: Diabetes mellitus custodial insulin use: without superintendent marine oil terminal use Diabetes mellitus complication status: with hyperglycemia Qualified Code(s): E11.65 - Type 2 diabetes mellitus with hyperglycemia (6) Hyperlipidemia Qualifiers: Hyperlipidemia type: mixed hyperlipidemia Qualified Code(s): E78.2 - Mixed hyperlipidemia
[2019-06-05] MEDS: Insulin DETEMIR 100 UNIT/ML X5UNITS SQ SCH (20:56)
[2019-06-05] MEDS: *HR* OxyCODONE/APAP 5/325 TABLET PO PRN (20:59)
--- NOTE | 2019-06-06 06:48 | Orthopedics Progress Note ---
Date of Encounter: 06/06/19 Time of Encounter: 06:47 - Assessment and Plan (1) Acute blood loss anemia Current Visit: Yes Status: Acute Subjective Principal diagnosis: right hip fracture Interval history: Patient was seen this morning doing well without complaints. Afebrile vital signs stable. Operative extremity: Neurovascularly intact Dressing clean dry and intact Calves nontender Assessment and plan: Continue with postoperative care Hematocrit 29 cleared for discharge Objective Vital signs: Vital Signs Temp Pulse Resp BP Pulse Ox 06/06/19 04:53 99.4 F 92 20 174/75 98 06/06/19 00:24 98.8 F 82 20 137/77 96 06/05/19 20:06 100.0 F H 95 20 157/84 97 06/05/19 16:10 98.1 F 99 18 158/92 98 06/05/19 12:37 98.4 F 92 18 156/82 98 06/05/19 07:06 97.9 F 95 20 165/89 95 Intake and Output 06/05/19 06/05/19 06/06/19 15:59 23:59 07:59 Intake Total 1000 / 2000 350 / 350 Balance 1000 / 2000 350 / 350 Intake: IV Fluids 1000 / 2000 0.9 % Sodium Chloride 1,000 ML 1000 / 2000 @ 100 mls/hr IVC .Q10H [facility] Rx#: [id number] Oral 350 / 350 Other: # Urine Diapers 1 Blood Glucose* 172 185 - Labs CBC & BMP: 06/05/19 01:53 06/05/19 01:53 Labs: Abnormal lab results WBC 13.5 K/mcL (4.3-11.1) H 06/05/19 01:53 RBC 3.22 M/mcL (4.19-5.50) L 06/05/19 01:53 Hgb 9.6 g/dL (12.9-16.9) L 06/05/19 01:53 Hct 29.8 % (37.5-50.1) L 06/05/19 01:53 Neutrophils # 9.1 K/mcL (1.6-8.9) H 06/05/19 01:53 Sodium 133 mEq/L (136-145) L 06/04/19 12:24 Potassium 3.3 mEq/L (3.5-5.1) L 06/05/19 01:53 Carbon Dioxide 21 mEq/L (23-29) L 06/05/19 01:53 BUN 26 mg/dL (8-23) H 06/05/19 01:53 Creatinine 1.50 mg/dL (0.70-1.30) H 06/02/19 05:07 Est GFR ( Amer) 54 (> 60) L 06/02/19 05:07 Est GFR (Non-Af Amer) 59 (> 60) L 06/05/19 01:53 Glucose 176 mg/dL (70-105) H 06/05/19 01:53 POC Glucose 185 mg/dL (70-99) H 06/05/19 20:47 Calculated Osmolality 301 (280-300) H 05/31/19 03:59 Calcium 8.4 mg/dL (8.6-10.3) L 06/02/19 05:07 Urine Protein 30 mg/dL (Neg-Trace) H 06/02/19 16:18 Urine Glucose (UA) 250 mg/dL (Normal) H 06/01/19 11:15 Urine Ketones Trace mg/dL (Negative) H 06/01/19 11:15 Urine Blood Trace (Negative) H 06/02/19 16:18 Ur Culture Indicated? YES (NO) A 06/02/19 16:18 Consult Discharge Plan - Plan Referrals: Geneva Hua, SERVICE DOG TRAINER [Primary Care Provider] -
[2019-06-06] MEDS: Loratadine 10 MG TABLET PO SCH (08:02)
[2019-06-06] MEDS: Insulin LISPRO 300 UNITS/3 ML VIAL SQ SCH ×2 (08:02→11:57)
--- NOTE | 2019-06-06 09:13 | Discharge Summary ---
- NOTES TO OUTPATIENT PROVIDER Notes to Outpatient Provider: Patient was admitted to the hospital for right hip fracture. Patient was status post right ORIF 10/17/2018. Patient presents with right hip pain for 5 days. X-ray showed intramedullary fracture. Patient had a revision surgery done while hospitalization. [facility] is getting [facility] Date of Encounter: 06/06/19 Time of Encounter: 09:11 - Discharge Diagnosis (1) Closed right femoral fracture Priority: Primary Status: Acute Qualifiers: Encounter type: initial encounter Femur location: unspecified portion of femur Fracture morphology: unspecified fracture morphology Qualified Code(s): S72.91XA - Unspecified fracture of right femur, initial encounter for closed fracture (2) Leukocytosis Priority: Secondary Status: Acute Qualifiers: Leukocytosis type: unspecified Qualified Code(s): D72.829 - Elevated white blood cell count, unspecified (3) Chronic kidney disease, stage III (moderate) Priority: Secondary Status: Chronic (4) Diabetes mellitus, type 2 Priority: Secondary Status: Chronic Qualifiers: Diabetes mellitus care home insulin use: without care home use Diabetes mellitus complication status: with hyperglycemia Qualified Code(s): E11.65 - Type 2 diabetes mellitus with hyperglycemia (5) Essential hypertension Priority: Secondary Status: Chronic (6) Hyperlipidemia Priority: Secondary Status: Chronic Qualifiers: Hyperlipidemia type: mixed hyperlipidemia Qualified Code(s): E78.2 - Mixed hyperlipidemia (7) DVT prophylaxis Priority: Secondary Status: Acute Hospital course: Mr. Wilkerson is a 79 year old male was admitted to the hospital for right hip fracture. Patient was status post right ORIF 10/17/2018. Patient presents with right hip pain for 5 days. X-ray showed intramedullary fracture. Patient had a revision surgery done while hospitalization. Patient is getting [facility]. Discharge discussed with: patient, family, nurse, social work, case management, taxation consultant - Time Spent with Patient Total time spent providing and/or coordinating discharge services: 40 Time spent: Greater than 30 minutes - Discharge Medications Prescriptions: New OxyCODONE/APAP 5/325 [Percocet 5/325 MG] 1 each PO Q4H PRN 3 Days #18 tablet PRN Reason: Severe Pain Continued Loratadine [Claritin] 10 mg PO DAILY Potassium Chloride [Klor-Con 10] 10 meq PO DAILY metFORMIN [Glucophage] 1,000 mg PO BIDWM Glimepiride [Amaryl] 4 mg PO DAILY Atorvastatin [Lipitor] 40 mg PO MOWEFR Vit A/Vit C/Vit E/Zinc/Copper [Icaps Areds Softgel] 1 cap PO DAILY Aspirin [Lo-Dose Aspirin EC] 81 mg PO DAILY Nitroglycerin [Nitrostat] 0.4 mg SL Q5MIN PRN MDD [id number] CALL 911 PRN Reason: Chest Pain Lisinopril/Hydrochlorothiazide [Lisinopril-Hctz 20-25 mg Tab] 20 mg PO DAILY Home Medications: Glimepiride [Amaryl] 4 mg PO DAILY 10/17/18 [History] Loratadine [Claritin] 10 mg PO DAILY 10/17/18 [History] Potassium Chloride [Klor-Con 10] 10 meq PO DAILY 10/17/18 [History] metFORMIN [Glucophage] 1,000 mg PO BIDWM 10/17/18 [History] Aspirin [Lo-Dose Aspirin EC] 81 mg PO DAILY 10/18/18 [History] Atorvastatin [Lipitor] 40 mg PO MOWEFR 10/18/18 [History] Nitroglycerin [Nitrostat] 0.4 mg SL Q5MIN PRN MDD [id number] CALL 911 10/18/18 [History] Vit A/Vit C/Vit E/Zinc/Copper [Icaps Areds Softgel] 1 cap PO DAILY 10/18/18 [History] Lisinopril/Hydrochlorothiazide [Lisinopril-Hctz 20-25 mg Tab] 20 mg PO DAILY 05/30/19 [History] OxyCODONE/APAP 5/325 [Percocet 5/325 MG] 1 each PO Q4H PRN 3 Days #18 tablet 06/06/19 [Rx] Allergies/Adverse Reactions: Allergy/AdvReac Type Severity Reaction Status Date / Time Penicillins AdvReac passed out Verified 10/18/18 11:54 Date of admission: 05/30/19 16:51 Primary care physician: Geneva Hua CNP Consults: 05/30/19 15:09 Consult to Orthopedic Surgery [CONS] Stat Consulting Provider: [facility] Reason for Consult: Right femoral fracture Time Notified: 15:10 Call Completed: Yes 05/31/19 12:13 Consult to Cardiology [CONS] Routine Comment: Consulting Provider: Andrey Edmondson Reason for Consult: Perioperative eval Call Completed: No 06/01/19 10:37 Consult to Occupational Therapy [CONS] Routine Comment: Evaluate, develop and implement POC Reason for Consult: postop Does patient have active BEDREST order?: No Is patient medically & hemodynamically stable?: Yes Patient assessed for mobility or mobilized this visit?: Yes Consult to Orthopedic Navigator [CONS] [CONS] Routine Consult to Physical Therapy [CONS] Routine Comment: Evaluate, develop and implement POC Reason for Consult: postop Does patient have active BEDREST order?: No Is patient medically & hemodynamically stable?: Yes Patient assessed for mobility or mobilized this visit?: Yes RT Post Op Consult [CONS] Routine 06/02/19 10:40 Consult to Straddle Bug Driver [CONS] Routine Reason for SW Consult: likely requires discharge needs, possible ECF Discharging clinician: Jarod Treviño - Constitutional Vitals: Temp Pulse Resp BP Pulse Ox 99.4 F 92 20 174/75 98 06/06/19 04:53 06/06/19 04:53 06/06/19 04:53 06/06/19 04:53 06/06/19 04:53 General appearance: Present: cooperative, A&O X 3 Exam: GENERAL: Not in distress. Alert and Oriented CHEST AND LUNGS: Normal breath sounds, no wheezes or crackles HEART: S1 and S2 normal, no murmurs ABDOMEN: Soft, nontender, no organomegaly SKIN: Normal color, no rahses, no lesions EXTREMITIES: Well-healed longitudinal surgical scar over right hip, moderate swelling and tenderness of the lateral right proximal thigh. Dressing in place laterally. No soakage of dressing with blood NEUROLOGICAL: Normal cognition, normal motor and sensory exam. - Patient Status Disposition: Transfer SNF Condition: Good Functional capacity at discharge: uses cane/walker Overall status at discharge: patient is not back to baseline - Discharge Instructions Follow Up With: Geneva Hua, [employer] [facility] [Primary Care Provider] - - Diet and Activity Activity: ambulate only with your walker, as per physical therapy, increase activity as tolerated Diet: advance to your usual diet, diabetic diet, low salt diet
--- NOTE | 2019-06-06 09:31 | Physician Discharge Referral ---
ExtendedCare Referral Info Transfer To: SNF Provider in Charge after Transfer: PCP - Diagnosis (1) Closed right femoral fracture Priority: Primary Status: Acute (2) Leukocytosis Priority: Secondary Status: Acute (3) Chronic kidney disease, stage III (moderate) Priority: Secondary Status: Chronic (4) Diabetes mellitus, type 2 Priority: Secondary Status: Chronic (5) Essential hypertension Priority: Secondary Status: Chronic (6) Hyperlipidemia Priority: Secondary Status: Chronic (7) DVT prophylaxis Priority: Secondary Status: Acute Prognosis: Good Aware of Diagnosis: Patient, Family Aware of Prognosis: Patient, Family - Transfer Medications Prescriptions: OxyCODONE/APAP 5/325 [Percocet 5/325 MG] 1 each PO Q4H PRN 3 Days #18 tablet PRN Reason: Severe Pain Prescription Printed Home Medications: Glimepiride [Amaryl] 4 mg PO DAILY 10/17/18 [History] Loratadine [Claritin] 10 mg PO DAILY 10/17/18 [History] Potassium Chloride [Klor-Con 10] 10 meq PO DAILY 10/17/18 [History] metFORMIN [Glucophage] 1,000 mg PO BIDWM 10/17/18 [History] Aspirin [Lo-Dose Aspirin EC] 81 mg PO DAILY 10/18/18 [History] Atorvastatin [Lipitor] 40 mg PO MOWEFR 10/18/18 [History] Nitroglycerin [Nitrostat] 0.4 mg SL Q5MIN PRN MDD [id number] CALL 911 10/18/18 [History] Vit A/Vit C/Vit E/Zinc/Copper [Icaps Areds Softgel] 1 cap PO DAILY 10/18/18 [History] Lisinopril/Hydrochlorothiazide [Lisinopril-Hctz 20-25 mg Tab] 20 mg PO DAILY 05/30/19 [History] OxyCODONE/APAP 5/325 [Percocet 5/325 MG] 1 each PO Q4H PRN 3 Days #18 tablet 06/06/19 [Rx] Allergies/Adverse Reactions: Allergy/AdvReac Type Severity Reaction Status Date / Time Penicillins AdvReac passed out Verified 10/18/18 11:54 - Respiratory Orders Smoking Cessation: Smoking cessation has been advised. For more information, call the [facility] Tobacco Quit Line at 5-458-OQDX-NOW. - Ancillary Orders May use pressure relief devices daily prn - Advance Directives Code Status: Full Code - Rehabiliation Orders Rehab Potential: Fair Rehab Orders: ROM Exercises, Evaluation for Physical Therapy, Evaluation for Occupational Therapy - Treatments Skin tear care topically daily PRN per policy - Diet Orders No Added Salt (NAHOMY), Cardiac CERTIFICATION: I certify that the transfer of the above named patient to an Extended Care Facility is necessary for the continuing treatment of the diagnosis listed. The above information is true and accurate reflection of patient's current condition. Confidential - Redisclosure prohibited without a patient's written consent.
[2019-06-06 11:42] VITALS: BP 138/71
== END 2019-06-06 12:22 | DRG 481 ==
LOC: SUATTDRO → EMEROOARM 12:46 → 3ANU 12:46 → SUATTDRO 16:51 → 3ANU 17:27 → 3NENU 06-01 09:23
PROVIDERS: ADMIT Internal Medicine; ATTEND Family Medicine

== ENCOUNTER 2021-02-06 13:21 | Inpatient (IN) ==
[2021-02-06 14:20] LABS: Basophils % 0.4 %; Eosinophils # 0.1 K/mcL (0.0-0.6); Eosinophils % 1.4 %; Hematocrit 39.8 % (37.5-50.1); Hemoglobin 13.9 g/dL (12.9-16.9); Immature Granulocytes % 0.3 % (0-4); Lymphocytes # 4.8 K/mcL (0.6-4.6); Lymphocytes % 48.1 %; Mean Corpuscular HGB Conc 34.9 g/dL (31.6-35.5); Mean Corpuscular Hemoglobin 31.5 pg (28.0-33.3); Mean Corpuscular Volume 90.2 fL (83.0-100.0); Mean Platelet Volume 11.7 fL (9.4-12.4); Monocytes # 0.6 K/mcL (0.0-1.3); Monocytes % 6.3 %; Neutrophils # 4.4 K/mcL (1.6-8.9); Platelet Count 355 K/mcL (140-400); Red Blood Count 4.41 M/mcL (4.19-5.50); Red Cell Distribution Width 12.8 % (11.5-14.5); Segmented Neutrophils % 43.5 %; White Blood Count 10.1 K/mcL (4.3-11.1)
[2021-02-06 14:46] LABS: Calcium 9.3 mg/dL (8.6-10.3); Potassium 3.7 mEq/L (3.5-5.1); Troponin I 0.11 ng/mL (< 0.04)
[2021-02-06] MEDS ORDERED: Aspirin 325 MG TABLET PO ONE ×2 (15:04→17:02)
[2021-02-06] MEDS ORDERED: 0.9 % Sodium Chloride 1,000 ML IVC ONE (15:10)
[2021-02-06] MEDS ORDERED: Insulin Human Regular 8 UNIT in 0.9 % Sodium Chloride 10 ML SUBQ ONE (15:14)
[2021-02-06 16:40] LABS: Bilirubin,Urine Negative (Negative); Blood,Urine Trace (Negative); Clarity,Urine Clear (Clear); Color,Urine Colorless (Yellow); Glucose,Urine (UA) >=1000 mg/dL (Normal); Ketones,Urine Trace mg/dL (Negative); Leukocyte Esterase,Urine Negative (Negative); Mucus,Urine Few per lpf (None-Few); Nitrite,Urine Negative (Negative); Protein,Urine Trace mg/dL (Neg-Trace); RBC,Urine 0-3 per hpf (0-3); Specific Gravity,Urine 1.014 (1.010-1.025); Urobilinogen,Urine Normal (Normal)
[2021-02-06] MEDS ORDERED: Naloxone 0.4 MG/ML INJ IVP PRN (17:46)
[2021-02-06] MEDS ORDERED: Nitroglycerin 0.4 MG TAB.SUBL SL PRN (17:49)
[2021-02-06] MEDS ORDERED: Perflutren Lipid Microsphere 1.3 ML in 0.9 % Sodium Chloride 8.7 ML IVP PRN (17:49)
[2021-02-06] MEDS ORDERED: *HR* Dextrose 50 % in Water (Vial) 50 ML VIAL IVP PRN (17:52)
[2021-02-06] MEDS ORDERED: D5% in Water 1,000 ML IVC PRN (17:52)
[2021-02-06] MEDS ORDERED: Dextrose Gel 15 GM/37.5 ML TUBE PO PRN ×2 (17:52)
[2021-02-06] MEDS ORDERED: Heparin 25,000UNIT/250ML 1/2NS 25,000 UNIT/250 ML IV.SOLN IVC SCH (18:00)
[2021-02-06] MEDS ORDERED: *HR* Heparin 5,000 UNIT/ML VIAL IVP PRN ×2 (18:00)
[2021-02-06 18:33] LABS: Hematocrit 38.8 % (37.5-50.1); Hemoglobin 13.4 g/dL (12.9-16.9); Mean Corpuscular HGB Conc 34.5 g/dL (31.6-35.5); Mean Corpuscular Hemoglobin 31.1 pg (28.0-33.3); Mean Platelet Volume 11.2 fL (9.4-12.4); Platelet Count 341 K/mcL (140-400); Red Blood Count 4.31 M/mcL (4.19-5.50); Red Cell Distribution Width 12.7 % (11.5-14.5); White Blood Count 12.4 K/mcL (4.3-11.1)
[2021-02-06 18:42] LABS: Estimated Average Glucose 283 mg/dl; Hemoglobin A1C 11.5 %; Heparin anti-factor XA UFH 0.05 IU/mL (0.30-0.70); Prothrombin Time 11.6 Seconds (9.4-12.1)
[2021-02-06 18:44] LABS: Activated Partial Thrombo Time 27.9 Seconds (26.0-36.0)
[2021-02-06] MEDS: Insulin LISPRO 300 UNITS/3 ML VIAL SUBQ SCH (21:07)
[2021-02-06] MEDS: Ondansetron 4 MG/2 ML VIAL IVP PRN (22:32)
[2021-02-07 02:05] LABS: Basophils % 0.2 %; Hematocrit 39.7 % (37.5-50.1); Hemoglobin 13.4 g/dL (12.9-16.9); Immature Granulocytes % 0.5 % (0-4); Lymphocytes # 5.4 K/mcL (0.6-4.6); Lymphocytes % 25.7 %; Mean Corpuscular HGB Conc 33.8 g/dL (31.6-35.5); Mean Corpuscular Hemoglobin 30.7 pg (28.0-33.3); Mean Corpuscular Volume 90.8 fL (83.0-100.0); Mean Platelet Volume 11.7 fL (9.4-12.4); Monocytes # 0.7 K/mcL (0.0-1.3); Monocytes % 3.3 %; Neutrophils # 14.6 K/mcL (1.6-8.9); Platelet Count 374 K/mcL (140-400); Red Blood Count 4.37 M/mcL (4.19-5.50); Segmented Neutrophils % 70.3 %
[2021-02-07 02:12] LABS: White Blood Count 20.8 K/mcL (4.3-11.1)
[2021-02-07 02:16] LABS: Albumin 3.9 g/dL (3.5-5.7); Albumin/Globulin Ratio 1.5 (1.1-2.2); Bilirubin,Total 1.7 mg/dL (0.3-1.0); Calcium 8.9 mg/dL (8.6-10.3); Chol/HDL Ratio 4.5 (0-4.9); Globulin 2.6 g/dL (2.4-3.5); Potassium 3.7 mEq/L (3.5-5.1); Total Protein 6.5 g/dL (6.4-8.9)
[2021-02-07 02:49] LABS: Platelet Estimate Normal (Normal); Reactive Lymphocytes Present (Not Present)
[2021-02-07] MEDS: Ondansetron 4 MG/2 ML VIAL IVP PRN (06:33)
[2021-02-07] MEDS: lisinopriL 20 MG TABLET PO SCH (08:04)
[2021-02-07] MEDS: Aspirin Enteric Coated 81 MG Tablet PO SCH (08:04)
[2021-02-07] MEDS: Insulin LISPRO 300 UNITS/3 ML VIAL SUBQ SCH ×4 (08:06→21:51)
[2021-02-07] MEDS ORDERED: levoFLOXacin 750 MG/150 ML 750 MG/150 ML BAG IVPB SCH (09:00)
[2021-02-07] MEDS: levoFLOXacin 750 MG/150 ML 750 MG/150 ML BAG IVPB SCH (12:10)
[2021-02-07] MEDS: Ipratropium/Albuterol Neb 3 ML IH SCH ×2 (16:05→22:56)
[2021-02-07] MEDS ORDERED: Insulin DETEMIR 100 UNIT/ML X5UNITS SUBQ SCH (21:00)
[2021-02-08] MEDS: Ondansetron 4 MG/2 ML VIAL IVP PRN ×2 (01:52→23:45)
[2021-02-08] MEDS: Ipratropium/Albuterol Neb 3 ML IH SCH ×2 (04:06→10:51)
[2021-02-08] MEDS: Aspirin Enteric Coated 81 MG Tablet PO SCH (07:41)
[2021-02-08] MEDS: lisinopriL 20 MG TABLET PO SCH (07:41)
[2021-02-08] MEDS: Insulin LISPRO 300 UNITS/3 ML VIAL SUBQ SCH ×3 (07:41→16:58)
[2021-02-08 08:35] LABS: Basophils % 0.2 %; Eosinophils % 0.2 %; Hematocrit 38.1 % (37.5-50.1); Hemoglobin 12.8 g/dL (12.9-16.9); Immature Granulocytes % 0.3 % (0-4); Lymphocytes # 3.9 K/mcL (0.6-4.6); Lymphocytes % 30.9 %; Mean Corpuscular HGB Conc 33.6 g/dL (31.6-35.5); Mean Corpuscular Hemoglobin 30.8 pg (28.0-33.3); Mean Corpuscular Volume 91.6 fL (83.0-100.0); Mean Platelet Volume 11.4 fL (9.4-12.4); Monocytes # 0.9 K/mcL (0.0-1.3); Monocytes % 7.4 %; Neutrophils # 7.7 K/mcL (1.6-8.9); Platelet Count 329 K/mcL (140-400); Red Blood Count 4.16 M/mcL (4.19-5.50); Red Cell Distribution Width 13.2 % (11.5-14.5); White Blood Count 12.6 K/mcL (4.3-11.1)
[2021-02-08 09:03] LABS: Calcium 9.3 mg/dL (8.6-10.3); Potassium 3.7 mEq/L (3.5-5.1)
[2021-02-08] MEDS ORDERED: Ipratropium/Albuterol Neb 3 ML IH PRN (10:51)
[2021-02-08] MEDS: Thiamine (B-1) 100 MG in 0.9 % Sodium Chloride 50 ML IVPB SCH (13:35)
[2021-02-08] MEDS: levETIRAcetam 250 MG in 0.9 % Sodium Chloride 100 ML IVPB SCH (16:58)
[2021-02-08] MEDS ORDERED: Haloperidol Lactate 5 MG/ML VIAL IVP ONE (18:08)
[2021-02-08] MEDS ORDERED: Aspirin 81 MG TAB.CHEW PO ONE (18:26)
[2021-02-09] MEDS: levETIRAcetam 250 MG in 0.9 % Sodium Chloride 100 ML IVPB SCH ×3 (00:25→20:08)
[2021-02-09] MEDS: Insulin LISPRO 300 UNITS/3 ML VIAL SUBQ SCH ×5 (00:27→17:41)
[2021-02-09] MEDS: Thiamine (B-1) 100 MG in 0.9 % Sodium Chloride 50 ML IVPB SCH ×3 (02:27→20:09)
[2021-02-09 03:42] LABS: Basophils % 0.3 %; Eosinophils # 0.1 K/mcL (0.0-0.6); Hematocrit 37.5 % (37.5-50.1); Hemoglobin 12.3 g/dL (12.9-16.9); Immature Granulocytes % 0.3 % (0-4); Lymphocytes # 5.1 K/mcL (0.6-4.6); Lymphocytes % 42.9 %; Mean Corpuscular HGB Conc 32.8 g/dL (31.6-35.5); Mean Corpuscular Hemoglobin 30.4 pg (28.0-33.3); Mean Corpuscular Volume 92.6 fL (83.0-100.0); Mean Platelet Volume 11.3 fL (9.4-12.4); Neutrophils # 5.7 K/mcL (1.6-8.9); Platelet Count 318 K/mcL (140-400); Red Blood Count 4.05 M/mcL (4.19-5.50); Red Cell Distribution Width 13.1 % (11.5-14.5); Segmented Neutrophils % 47.5 %; White Blood Count 11.9 K/mcL (4.3-11.1)
[2021-02-09 03:47] LABS: INR 1.2; Prothrombin Time 13.3 Seconds (9.4-12.1)
[2021-02-09 04:02] LABS: Albumin 3.5 g/dL (3.5-5.7); Albumin/Globulin Ratio 1.6 (1.1-2.2); Bilirubin,Total 1.5 mg/dL (0.3-1.0); Calcium 9.1 mg/dL (8.6-10.3); Chol/HDL Ratio 3.6 (0-4.9); Globulin 2.2 g/dL (2.4-3.5); Potassium 3.5 mEq/L (3.5-5.1); Total Protein 5.7 g/dL (6.4-8.9)
[2021-02-09 04:03] LABS: Platelet Estimate Normal (Normal); Reactive Lymphocytes Present (Not Present)
[2021-02-09 04:04] LABS: Smudge Cells Present (Not Present)
[2021-02-09 04:07] LABS: Troponin I 0.1 ng/mL (< 0.04)
[2021-02-09 04:38] LABS: Estimated Average Glucose 272 mg/dl; Hemoglobin A1C 11.1 %
[2021-02-09] MEDS: levoFLOXacin 750 MG/150 ML 750 MG/150 ML BAG IVPB SCH (08:56)
[2021-02-09] MEDS: Acetaminophen 325 MG TABLET PO PRN (20:09)
[2021-02-09] MEDS: Insulin DETEMIR 100 UNIT/ML X5UNITS SUBQ SCH (20:09)
[2021-02-10 03:29] LABS: Basophils # 0.1 K/mcL (0.0-0.2); Basophils % 0.5 %; Eosinophils # 0.2 K/mcL (0.0-0.6); Eosinophils % 1.9 %; Hemoglobin 11.8 g/dL (12.9-16.9); Immature Granulocytes % 0.3 % (0-4); Lymphocytes % 49.6 %; Mean Corpuscular HGB Conc 32.8 g/dL (31.6-35.5); Mean Corpuscular Hemoglobin 30.6 pg (28.0-33.3); Mean Corpuscular Volume 93.5 fL (83.0-100.0); Mean Platelet Volume 11.5 fL (9.4-12.4); Monocytes # 0.7 K/mcL (0.0-1.3); Monocytes % 7.3 %; Neutrophils # 4.1 K/mcL (1.6-8.9); Platelet Count 313 K/mcL (140-400); Red Blood Count 3.85 M/mcL (4.19-5.50); Red Cell Distribution Width 13.2 % (11.5-14.5); Segmented Neutrophils % 40.4 %; White Blood Count 10.1 K/mcL (4.3-11.1)
[2021-02-10 03:48] LABS: Calcium 8.9 mg/dL (8.6-10.3); Potassium 3.7 mEq/L (3.5-5.1)
[2021-02-10] MEDS: Insulin LISPRO 300 UNITS/3 ML VIAL SUBQ SCH ×4 (07:17→22:35)
[2021-02-10] MEDS: Thiamine (B-1) 100 MG in 0.9 % Sodium Chloride 50 ML IVPB SCH ×2 (08:52→22:33)
[2021-02-10] MEDS: levETIRAcetam 250 MG in 0.9 % Sodium Chloride 100 ML IVPB SCH ×2 (08:52→22:31)
[2021-02-10] MEDS ORDERED: Aspirin 81 MG TAB.CHEW PO SCH (09:05)
[2021-02-10] MEDS: amLODIPine 5 MG TABLET PO SCH (11:29)
[2021-02-10] MEDS: Acetaminophen 325 MG TABLET PO PRN (22:34)
[2021-02-10] MEDS: Insulin DETEMIR 100 UNIT/ML X5UNITS SUBQ SCH (22:34)
[2021-02-11 05:23] LABS: Basophils % 0.3 %; Eosinophils # 0.2 K/mcL (0.0-0.6); Eosinophils % 2.6 %; Hematocrit 37.8 % (37.5-50.1); Hemoglobin 12.4 g/dL (12.9-16.9); Immature Granulocytes % 0.2 % (0-4); Lymphocytes # 4.7 K/mcL (0.6-4.6); Lymphocytes % 53.7 %; Mean Corpuscular HGB Conc 32.8 g/dL (31.6-35.5); Mean Corpuscular Hemoglobin 30.4 pg (28.0-33.3); Mean Corpuscular Volume 92.6 fL (83.0-100.0); Mean Platelet Volume 11.3 fL (9.4-12.4); Monocytes # 0.7 K/mcL (0.0-1.3); Neutrophils # 3.1 K/mcL (1.6-8.9); Platelet Count 312 K/mcL (140-400); Red Blood Count 4.08 M/mcL (4.19-5.50); Red Cell Distribution Width 12.8 % (11.5-14.5); Segmented Neutrophils % 35.2 %; White Blood Count 8.7 K/mcL (4.3-11.1)
[2021-02-11 05:46] LABS: Calcium 9.1 mg/dL (8.6-10.3); Potassium 3.3 mEq/L (3.5-5.1)
[2021-02-11 05:49] LABS: Platelet Estimate Normal (Normal); Reactive Lymphocytes Present (Not Present)
[2021-02-11] MEDS: Insulin LISPRO 300 UNITS/3 ML VIAL SUBQ SCH ×4 (07:54→21:41)
[2021-02-11] MEDS: amLODIPine 5 MG TABLET PO SCH (08:24)
[2021-02-11] MEDS: levETIRAcetam 250 MG in 0.9 % Sodium Chloride 100 ML IVPB SCH ×2 (08:24→21:36)
[2021-02-11] MEDS: Aspirin 81 MG TAB.CHEW PO SCH (08:25)
[2021-02-11] MEDS: Thiamine (B-1) 100 MG in 0.9 % Sodium Chloride 50 ML IVPB SCH ×2 (08:51→21:35)
[2021-02-11] MEDS ORDERED: levoFLOXacin 750 MG TABLET PO SCH (09:00)
[2021-02-11 10:08] LABS: Adenovirus Not Detected (Not Detect); Bordetella Pertussis Not Detected (Not Detect); Chlamydophila pneumoniae Not Detected (Not Detect); Coronavirus 229E Not Detected (Not Detect); Coronavirus HKU1 Not Detected (Not Detect); Coronavirus NL63 Not Detected (Not Detect); Coronavirus OC43 Not Detected (Not Detect); Human Metapneumovirus Not Detected (Not Detect); Human Rhinovirus/Enterovirus Not Detected (Not Detect); Influenza A Subtype 2009 H1 Not Detected (Not Detect); Influenza B Not Detected (Not Detect); Mycoplasma pneumoniae Not Detected (Not Detect); Parainfluenza Virus 1 Not Detected (Not Detect); Parainfluenza Virus 2 Not Detected (Not Detect); Parainfluenza Virus 3 Not Detected (Not Detect); Parainfluenza Virus 4 Not Detected (Not Detect); Respiratory Syncytial Virus Not Detected (Not Detect); SARS-CoV-2 Not Detected (Not Detect)
[2021-02-11] MEDS ORDERED: Lidocaine Viscous Oral Soln 15 ML SOLUTION MM PRN (10:58)
[2021-02-11] MEDS ORDERED: *HR* FentaNYL (PF) 100 MCG/2 ML VIAL IVP PRN (10:58)
[2021-02-11] MEDS ORDERED: 0.9 % Sodium Chloride 500 ML IVC ONE (10:59)
[2021-02-11] MEDS ORDERED: *HR* Midazolam HCl 2 MG/2 ML VIAL IVP PRN (11:13)
[2021-02-11] MEDS ORDERED: *HR* Midazolam HCl 5 MG/5 ML VIAL IVP ONE ×2 (11:16→11:17)
[2021-02-11] MEDS: *HR* Heparin 5,000 UNIT/ML VIAL SQ SCH ×2 (12:58→21:35)
[2021-02-11] MEDS: Insulin DETEMIR 100 UNIT/ML X5UNITS SUBQ SCH (21:35)
[2021-02-12 02:08] LABS: Basophils # 0.1 K/mcL (0.0-0.2); Basophils % 0.4 %; Eosinophils # 0.2 K/mcL (0.0-0.6); Eosinophils % 1.3 %; Hematocrit 38.9 % (37.5-50.1); Hemoglobin 12.6 g/dL (12.9-16.9); Immature Granulocytes % 0.4 % (0-4); Lymphocytes # 4.2 K/mcL (0.6-4.6); Lymphocytes % 37.9 %; Mean Corpuscular HGB Conc 32.4 g/dL (31.6-35.5); Mean Corpuscular Hemoglobin 30.1 pg (28.0-33.3); Mean Corpuscular Volume 93.1 fL (83.0-100.0); Mean Platelet Volume 11.4 fL (9.4-12.4); Monocytes # 0.8 K/mcL (0.0-1.3); Monocytes % 7.1 %; Neutrophils # 5.9 K/mcL (1.6-8.9); Platelet Count 329 K/mcL (140-400); Red Blood Count 4.18 M/mcL (4.19-5.50); Red Cell Distribution Width 13.1 % (11.5-14.5); Segmented Neutrophils % 52.9 %; White Blood Count 11.2 K/mcL (4.3-11.1)
[2021-02-12 02:26] LABS: Potassium 3.8 mEq/L (3.5-5.1)
[2021-02-12] MEDS: *HR* Heparin 5,000 UNIT/ML VIAL SQ SCH ×2 (05:26→14:13)
[2021-02-12] MEDS: Insulin LISPRO 300 UNITS/3 ML VIAL SUBQ SCH ×2 (07:26→11:43)
[2021-02-12] MEDS: amLODIPine 5 MG TABLET PO SCH (07:38)
[2021-02-12] MEDS: Aspirin 81 MG TAB.CHEW PO SCH (07:38)
[2021-02-12] MEDS: Thiamine (B-1) 100 MG in 0.9 % Sodium Chloride 50 ML IVPB SCH ×2 (07:41→09:11)
[2021-02-12] MEDS: levETIRAcetam 250 MG in 0.9 % Sodium Chloride 100 ML IVPB SCH ×2 (07:41→09:11)
[2021-02-12] MEDS ORDERED: Thiamine (B-1) 100 MG TABLET PO SCH (09:15)
[2021-02-12] MEDS ORDERED: levETIRAcetam 250 MG TABLET PO SCH ×2 (09:15→18:00)
[2021-02-12 10:01] LABS: Magnesium 1.8 mg/dL (1.6-2.6)
[2021-02-12 15:55] VITALS: BP 124/74
[2021-02-13] MEDS ORDERED: Loratadine 10 MG TABLET PO SCH (09:00)
[2021-02-13] MEDS ORDERED: Cyanocobalamin (B-12) 1,000 MCG TABLET PO SCH (09:00)
[2021-02-13] MEDS ORDERED: Magnesium Oxide 400 MG TABLET PO ONE ×2 (10:21)
== END 2021-02-12 17:24 | DRG 64 ==
LOC: EMEROOARM 13:21 → 2ANU 13:21 → SUATTDRO 17:56 → 2ANU 18:43
PROVIDERS: ADMIT Internal Medicine; ATTEND General Practice

== ENCOUNTER 2021-02-21 18:32 | Inpatient (IN) ==
[2021-02-21 21:21] LABS: Hematocrit 43.9 % (37.5-50.1); Hemoglobin 14.5 g/dL (12.9-16.9); Mean Corpuscular Hemoglobin 30.6 pg (28.0-33.3); Mean Corpuscular Volume 92.6 fL (83.0-100.0); Mean Platelet Volume 11.6 fL (9.4-12.4); Platelet Count 388 K/mcL (140-400); Red Blood Count 4.74 M/mcL (4.19-5.50); Red Cell Distribution Width 12.6 % (11.5-14.5); White Blood Count 16.1 K/mcL (4.3-11.1)
[2021-02-21 21:42] LABS: BUN/Creatinine Ratio 29 (6-26); Blood Urea Nitrogen 50 mg/dL (8-23); Calcium 9.4 mg/dL (8.6-10.3); Carbon Dioxide 24 mEq/L (23-29); Chloride 101 mEq/L (98-107); Creatine Kinase 63 Units/L (30-223); Glucose 327 mg/dL (70-105); Osmolality,Calculated 306 (280-300); Potassium 3.8 mEq/L (3.5-5.1); Sodium 135 mEq/L (136-145); eGFR For African Americans 46 (> 60); eGFR For Non-African Americans 38 (> 60)
[2021-02-21 21:43] LABS: Troponin I < 0.03 ng/mL (< 0.04)
[2021-02-21] MEDS ORDERED: Naloxone 0.4 MG/ML INJ IVP PRN (23:23)
[2021-02-21] MEDS ORDERED: Ondansetron 4 MG/2 ML VIAL IVP PRN (23:23)
[2021-02-22 00:42] LABS: Hematocrit 44.7 % (37.5-50.1); Hemoglobin 14.6 g/dL (12.9-16.9); Mean Corpuscular HGB Conc 32.7 g/dL (31.6-35.5); Mean Corpuscular Hemoglobin 30.3 pg (28.0-33.3); Mean Corpuscular Volume 92.7 fL (83.0-100.0); Mean Platelet Volume 11.4 fL (9.4-12.4); Platelet Count 398 K/mcL (140-400); Red Blood Count 4.82 M/mcL (4.19-5.50); Red Cell Distribution Width 12.5 % (11.5-14.5)
[2021-02-22 01:08] LABS: BUN/Creatinine Ratio 29 (6-26); Blood Urea Nitrogen 50 mg/dL (8-23); Calcium 9.4 mg/dL (8.6-10.3); Carbon Dioxide 23 mEq/L (23-29); Chloride 101 mEq/L (98-107); Glucose 277 mg/dL (70-105); Osmolality,Calculated 307 (280-300); Potassium 3.5 mEq/L (3.5-5.1); Sodium 137 mEq/L (136-145); Troponin I < 0.03 ng/mL (< 0.04); eGFR For African Americans 47 (> 60); eGFR For Non-African Americans 39 (> 60)
[2021-02-22] MEDS ORDERED: *HR* Dextrose 50 % in Water (Vial) 50 ML VIAL IVP PRN (01:10)
[2021-02-22] MEDS ORDERED: Dextrose Gel 15 GM/37.5 ML TUBE PO PRN ×2 (01:10)
[2021-02-22] MEDS ORDERED: D5% in Water 1,000 ML IVC PRN (01:10)
[2021-02-22] MEDS: Insulin DETEMIR 100 UNIT/ML X5UNITS SUBQ SCH ×2 (01:33→21:01)
[2021-02-22] MEDS: Insulin LISPRO 300 UNITS/3 ML VIAL SUBQ SCH ×4 (01:34→17:55)
[2021-02-22 03:26] LABS: Bilirubin,Urine Negative (Negative); Blood,Urine Negative (Negative); Clarity,Urine Clear (Clear); Color,Urine Light-Yellow (Yellow); Glucose,Urine (UA) 500 mg/dL (Normal); Ketones,Urine Trace mg/dL (Negative); Leukocyte Esterase,Urine Negative (Negative); Mucus,Urine Few per lpf (None-Few); Nitrite,Urine Negative (Negative); PH,Urine 5.5 pH Units (5.0-8.0); Protein,Urine Trace mg/dL (Neg-Trace); RBC,Urine 0-3 per hpf (0-3); Specific Gravity,Urine 1.018 (1.010-1.025); Urobilinogen,Urine Normal (Normal); WBC,Urine 0-3 per hpf (0-3)
[2021-02-22] MEDS ORDERED: Acetaminophen 325 MG TABLET PO PRN (12:18)
[2021-02-22] MEDS ORDERED: Nitroglycerin 0.4 MG TAB.SUBL SL PRN (12:18)
[2021-02-22] MEDS: amLODIPine 5 MG TABLET PO SCH (13:00)
[2021-02-22] MEDS: levETIRAcetam 250 MG TABLET PO SCH ×2 (13:00→21:01)
[2021-02-22] MEDS: Thiamine (B-1) 100 MG TABLET PO SCH (21:01)
[2021-02-23] MEDS: Insulin LISPRO 300 UNITS/3 ML VIAL SUBQ SCH ×4 (01:26→17:36)
[2021-02-23 03:08] LABS: Hematocrit 40.8 % (37.5-50.1); Hemoglobin 13.8 g/dL (12.9-16.9); Mean Corpuscular HGB Conc 33.8 g/dL (31.6-35.5); Mean Corpuscular Volume 91.7 fL (83.0-100.0); Mean Platelet Volume 11.7 fL (9.4-12.4); Platelet Count 404 K/mcL (140-400); Red Blood Count 4.45 M/mcL (4.19-5.50); Red Cell Distribution Width 12.6 % (11.5-14.5); White Blood Count 16.3 K/mcL (4.3-11.1)
[2021-02-23 03:28] LABS: Calcium 9.2 mg/dL (8.6-10.3); Potassium 3.5 mEq/L (3.5-5.1)
[2021-02-23] MEDS: Aspirin Enteric Coated 81 MG Tablet PO SCH (08:39)
[2021-02-23] MEDS: amLODIPine 5 MG TABLET PO SCH (08:39)
[2021-02-23] MEDS: levETIRAcetam 250 MG TABLET PO SCH ×2 (08:39→20:05)
[2021-02-23] MEDS: Thiamine (B-1) 100 MG TABLET PO SCH ×2 (08:39→20:05)
[2021-02-23] MEDS: Loratadine 10 MG TABLET PO SCH (08:39)
[2021-02-23] MEDS: Cyanocobalamin (B-12) 1,000 MCG TABLET PO SCH (08:39)
[2021-02-23] MEDS: polyethylene glycoL 3350 17 GM POWD.PACK PO SCH (20:04)
[2021-02-23] MEDS: Insulin DETEMIR 100 UNIT/ML X5UNITS SUBQ SCH (20:10)
[2021-02-24] MEDS: Insulin LISPRO 300 UNITS/3 ML VIAL SUBQ SCH ×5 (00:04→23:41)
[2021-02-24] MEDS: polyethylene glycoL 3350 17 GM POWD.PACK PO SCH ×2 (08:43→21:20)
[2021-02-24] MEDS: Thiamine (B-1) 100 MG TABLET PO SCH ×2 (08:43→21:21)
[2021-02-24] MEDS: *HR* Glimepiride 4 MG TABLET PO SCH (08:43)
[2021-02-24] MEDS: Aspirin Enteric Coated 81 MG Tablet PO SCH (08:43)
[2021-02-24] MEDS: amLODIPine 5 MG TABLET PO SCH (08:44)
[2021-02-24] MEDS: Loratadine 10 MG TABLET PO SCH (08:44)
[2021-02-24] MEDS: Cyanocobalamin (B-12) 1,000 MCG TABLET PO SCH (08:44)
[2021-02-24] MEDS: levETIRAcetam 250 MG TABLET PO SCH ×2 (08:44→21:21)
[2021-02-24] MEDS: Insulin DETEMIR 100 UNIT/ML X5UNITS SUBQ SCH (21:20)
[2021-02-25 03:06] LABS: Hematocrit 40.6 % (37.5-50.1); Hemoglobin 13.4 g/dL (12.9-16.9); Mean Corpuscular Hemoglobin 30.5 pg (28.0-33.3); Mean Corpuscular Volume 92.3 fL (83.0-100.0); Mean Platelet Volume 11.3 fL (9.4-12.4); Platelet Count 371 K/mcL (140-400); Red Cell Distribution Width 12.4 % (11.5-14.5); White Blood Count 12.5 K/mcL (4.3-11.1)
[2021-02-25 03:26] LABS: Calcium 9.5 mg/dL (8.6-10.3); Potassium 3.7 mEq/L (3.5-5.1)
[2021-02-25] MEDS: Insulin LISPRO 300 UNITS/3 ML VIAL SUBQ SCH ×3 (06:05→16:47)
[2021-02-25] MEDS: levETIRAcetam 250 MG TABLET PO SCH ×2 (09:23→20:25)
[2021-02-25] MEDS: Aspirin Enteric Coated 81 MG Tablet PO SCH (09:23)
[2021-02-25] MEDS: Loratadine 10 MG TABLET PO SCH (09:23)
[2021-02-25] MEDS: Cyanocobalamin (B-12) 1,000 MCG TABLET PO SCH (09:23)
[2021-02-25] MEDS: Thiamine (B-1) 100 MG TABLET PO SCH ×2 (09:23→20:25)
[2021-02-25] MEDS: polyethylene glycoL 3350 17 GM POWD.PACK PO SCH ×2 (09:24→20:25)
[2021-02-25] MEDS: *HR* Glimepiride 4 MG TABLET PO SCH (09:27)
[2021-02-25] MEDS: amLODIPine 5 MG TABLET PO SCH (09:30)
[2021-02-25] MEDS: *HR* Heparin 5,000 UNIT/ML VIAL SQ SCH (16:47)
[2021-02-25] MEDS ORDERED: Insulin LISPRO 300 UNITS/3 ML VIAL SUBQ SCH (21:00)
[2021-02-25] MEDS ORDERED: Insulin DETEMIR 100 UNIT/ML X5UNITS SUBQ SCH (21:00)
[2021-02-26] MEDS: *HR* Heparin 5,000 UNIT/ML VIAL SQ SCH (05:39)
[2021-02-26] MEDS: Cyanocobalamin (B-12) 1,000 MCG TABLET PO SCH (07:34)
[2021-02-26] MEDS: levETIRAcetam 250 MG TABLET PO SCH (07:34)
[2021-02-26] MEDS: Thiamine (B-1) 100 MG TABLET PO SCH (07:34)
[2021-02-26] MEDS: *HR* Glimepiride 4 MG TABLET PO SCH (07:34)
[2021-02-26] MEDS: Aspirin Enteric Coated 81 MG Tablet PO SCH (07:34)
[2021-02-26] MEDS: Loratadine 10 MG TABLET PO SCH (07:35)
[2021-02-26] MEDS: Insulin LISPRO 300 UNITS/3 ML VIAL SUBQ SCH ×2 (07:35→11:13)
[2021-02-26] MEDS: polyethylene glycoL 3350 17 GM POWD.PACK PO SCH (07:35)
[2021-02-26] MEDS: amLODIPine 5 MG TABLET PO SCH (07:35)
[2021-02-26 11:05] VITALS: BP 118/74
[2021-02-26 11:57] LABS: Adenovirus Not Detected (Not Detect); Bordetella Pertussis Not Detected (Not Detect); Chlamydophila pneumoniae Not Detected (Not Detect); Coronavirus 229E Not Detected (Not Detect); Coronavirus HKU1 Not Detected (Not Detect); Coronavirus NL63 Not Detected (Not Detect); Coronavirus OC43 Not Detected (Not Detect); Human Metapneumovirus Not Detected (Not Detect); Human Rhinovirus/Enterovirus Not Detected (Not Detect); Influenza A Subtype 2009 H1 Not Detected (Not Detect); Influenza B Not Detected (Not Detect); Mycoplasma pneumoniae Not Detected (Not Detect); Parainfluenza Virus 1 Not Detected (Not Detect); Parainfluenza Virus 2 Not Detected (Not Detect); Parainfluenza Virus 3 Not Detected (Not Detect); Parainfluenza Virus 4 Not Detected (Not Detect); Respiratory Syncytial Virus Not Detected (Not Detect); SARS-CoV-2 Not Detected (Not Detect)
== END 2021-02-26 12:59 | DRG 66 ==
LOC: 2ANU 18:32 → EMEROOARM 18:32 → SUATTDRO 22:44 → 2ANU 22:47 → SUATTDRO 02-23 16:42
PROVIDERS: ADMIT Student in an Organized Health Care Education/Training Program; ATTEND Internal Medicine